=== PATIENT | female | born 1965 | race Caucasian/White ===

== ENCOUNTER 2016-08-14 13:46 | Inpatient (IN) | payer MEDICARE, MEDICAID ==
[2016-08-14] MEDS ORDERED: clonazePAM TAB(*) 0.5 MG PO ONE (14:58)
[2016-08-14 15:01] LABS: Urine Bilirubin Negative (Negative); Urine Glucose Negative (Negative); Urine Nitrite Negative (Negative)
[2016-08-14 15:14] LABS: Benzodiazepine Urine Screen None Detected (None Detect)
[2016-08-14 15:24] LABS: Hematocrit 38 % (35-47); Hemoglobin 13.1 g/dl (12.0-16.0); Mean Corpuscular HGB Conc 35 g/dl (31-36); Mean Corpuscular Hemoglobin 32 pg (27-31); Mean Corpuscular Volume 93 fL (80-97); Mean Platelet Volume 11 um3 (7.4-10.4); Red Blood Count 4.05 10^6/ul (4.0-5.4); Red Cell Distribution Width 13 % (10.5-15); White Blood Count 5.9 10^3/ul (3.5-10.8)
[2016-08-14 15:31] LABS: Comments Flag Yes
[2016-08-14 15:32] LABS: Add Diff/Slide Review? Slide Review Added
[2016-08-14 15:42] LABS: ALT 18 U/L (7-52); AST 21 U/L (13-39); Alkaline Phosphatase 55 U/L (34-104); Anion Gap 7 mmol/L (2-11); BUN/Creatinine Ratio 10.8 (8-20); Blood Urea Nitrogen 12 mg/dL (6-24); CO2 Carbon Dioxide 29 mmol/L (22-32); Calcium 9.4 mg/dL (8.6-10.3); Chloride 97 mmol/L (101-111); EGFR African American 66.4 (>60); EGFR Non-African American 51.6 (>60); Globulin 2.7 g/dL (2-4); Glucose 96 mg/dL (70-100); Sodium 133 mmol/L (133-145); Total Protein 6.7 g/dL (6.4-8.9)
[2016-08-14 16:05] LABS: Acetaminophen < 15 mcg/mL; Alcohol < 10 mg/dL (<10); Salicylate < 2.50 mg/dL (<30)
[2016-08-14 16:14] LABS: TSH (Thyroid Stimulating Horm) 0.69 mcIU/mL (0.34-5.60)
[2016-08-14] MEDS ORDERED: Al Hydrox/Mg Hydrox/Simet LIQ* 30 ML UDC PO PRN (22:17)
[2016-08-14] MEDS ORDERED: clonazePAM TAB(*) 1 MG ONE (23:35)
[2016-08-14] MEDS ORDERED: Pregabalin CAP(*) 100 MG ONE (23:36)
--- NOTE | 2016-08-15 07:08 | ED ---
Kacy Clarke Matthew, scribed for Jose Arroyo MD on 08/14/16 at 1416 . Altered Mental Status - HPI Summary HPI Summary: A 50 y/o female presents to the ED with altered mental status. The patient states that she has suicidal ideation that's worse than baseline and has a plan to cut her wrist with razor blades. Associated symptoms include depression and anxiety. She had a recent change in her medication last week. - History Of Current Complaint Chief Complaint: EDMentalHealth Stated Complaint: SI Time Seen by Provider: 08/14/16 14:04 Hx Obtained From: Patient Hx From Patient Unobtainable Due To: Altered Mental Status Onset/Duration: Still Present Timing: Constant Severity Initially: Moderate Severity Currently: Moderate Aggravating Factor(s): Medication Change Has Suicidal: Thoughts, With A Plan - Allergies/Home Medications Allergies/Adverse Reactions: Allergies Allergy/AdvReac Type Severity Reaction Status Date / Time No Known Allergies Allergy Verified 08/14/16 13:54 PMH/Surg Hx/FS Hx/Imm Hx Endocrine/Hematology History: Reports: Hx Thyroid Disease - hypothyroid Denies: Hx Diabetes Cardiovascular History: Denies: Hx Hypertension, Hx Pacemaker/ICD Respiratory History: Reports: Hx Pulmonary Embolism - 2002 Denies: Hx Asthma GI History: Reports: Hx Jaundice - 09/2013 R/T GALLBLADDER, NONE NOW, Hx Ileostomy Musculoskeletal History: Reports: Hx Fibromyalgia Denies: Hx Osteoporosis Sensory History: Denies: Hx Hearing Aid Neurological History: Reports: Hx Migraine - Hx OF , EVERY FEW MONTHS, Other Neuro Impairments/Disorders - FIBROMYALGIA Psychiatric History: Reports: Hx Anxiety, Hx Panic Disorder, Hx Post Traumatic Stress Disorder - Cancer History Hx Chemotherapy: No Hx Radiation Therapy: No - Surgical History Surgery Procedure, Year, and Place: 2002 PROLASPE RECTAL WITH REPAIR [facility]. 2002 ILEOSTOMY & REVERSAL [facility]. 2002 TRACHEOSTOMY [facility]. 2003 ABDOMINAL HERNIA REPAIRS X 2 [facility]. 10/22/2013 [facility] Hx Anesthesia Reactions: Yes - PANIC ATTACKS, Infectious Disease History: No Infectious Disease History: Denies: Traveled Outside the [place] in Last 30 Days - Family History Family History: FHx of breast CA - Social History Alcohol Use: None Substance Use Type: Reports: None Type: Cigarettes Amount Used/How Often: 3-4 PPD 16 YRS Length of Time of Smoking/Using Tobacco: 16 YRS Have You Smoked in the Last Year: No Review of Systems Constitutional: Negative Eyes: Negative ENT: Negative Cardiovascular: Negative Respiratory: Negative Gastrointestinal: Negative Genitourinary: Negative Musculoskeletal: Negative Skin: Negative Neurological: Negative Psychological: Other - SI Positive: Anxious, Depressed All Other Systems Reviewed And Are Negative: Yes Physical Exam Triage Information Reviewed: Yes Vital Signs On Initial Exam: Initial Vitals Temp Pulse Resp BP Pulse Ox 97.9 F 101 20 112/69 100 08/14/16 13:46 08/14/16 13:46 08/14/16 13:46 08/14/16 13:46 08/14/16 13:46 Vital Signs Reviewed: Yes Appearance: Positive: No Pain Distress, Well-Nourished Skin: Positive: Warm, Skin Color Reflects Adequate Perfusion, Dry Head/Face: Positive: Normal Head/Face Inspection Eyes: Positive: Normal ENT: Positive: Normal ENT inspection Neck: Positive: Supple, Nontender Respiratory/Lung Sounds: Positive: Clear to Auscultation, Breath Sounds Present Cardiovascular: Positive: RRR Abdomen Description: Positive: Nontender, Soft Bowel Sounds: Positive: Present Musculoskeletal: Positive: Normal, Strength/ROM Intact Neurological: Positive: Normal, Alert, Oriented to Person Place, Time Psychiatric: Positive: Anxious Diagnostics - Vital Signs Vital Signs Temp Pulse Resp BP Pulse Ox 08/14/16 13:46 97.9 F 101 20 112/69 100 - Laboratory Lab Results: Lab Results 08/14/16 08/14/16 08/14/16 Range/Units 14:45 14:45 15:15 WBC 5.9 (3.5-10.8) 10^3/ul RBC 4.05 (4.0-5.4) 10^6/ul Hgb 13.1 (12.0-16.0) g/dl Hct 38 (35-47) % MCV 93 (80-97) fL MCH 32 H (27-31) pg MCHC 35 (31-36) g/dl RDW 13 (10.5-15) % Plt Count 165 (150-450) 10^3/ul MPV 11 H (7.4-10.4) um3 Neut % (Auto) 70.2 (38-83) % Lymph % (Auto) 22.0 L (25-47) % Nobles % (Auto) 7.2 (1-9) % Eos % (Auto) 0.1 (0-6) % Baso % (Auto) 0.5 (0-2) % Absolute Neuts (auto) 4.1 (1.5-7.7) 10^3/ul Absolute Lymphs (auto) 1.3 (1.0-4.8) 10^3/ul Absolute Monos (auto) 0.4 (0-0.8) 10^3/ul Absolute Eos (auto) 0 (0-0.6) 10^3/ul Absolute Basos (auto) 0 (0-0.2) 10^3/ul Absolute Nucleated RBC 0.01 10^3/ul Nucleated RBC % 0.1 Sodium (133-145) mmol/L Potassium (3.5-5.0) mmol/L Chloride (101-111) mmol/L Carbon Dioxide (22-32) mmol/L Anion Gap (2-11) mmol/L BUN (6-24) mg/dL Creatinine (0.51-0.95) mg/dL Est GFR ( Amer) (>60) Est GFR (Non-Af Amer) (>60) BUN/Creatinine Ratio (8-20) Glucose (70-100) mg/dL Calcium (8.6-10.3) mg/dL Total Bilirubin (0.2-1.0) mg/dL AST (13-39) U/L ALT (7-52) U/L Alkaline Phosphatase (34-104) U/L Total Protein (6.4-8.9) g/dL Albumin (3.2-5.2) g/dL Globulin (2-4) g/dL Albumin/Globulin Ratio (1-3) TSH (0.34-5.60) mcIU/mL Urine Color Yellow Urine Appearance Clear Urine pH 9.0 (5-9) Ur Specific [place] 1.010 (1.010-1.030) Urine Protein Negative (Negative) Urine Ketones Negative (Negative) Urine Blood Negative (Negative) Urine Nitrate Negative (Negative) Urine Bilirubin Negative (Negative) Urine Urobilinogen Negative (Negative) Ur Leukocyte Esterase Negative (Negative) Urine Glucose Negative (Negative) Urine Ascorbic Acid * H (Negative) Salicylates (<30) mg/dL Urine Opiates Screen None detected (None Detect) Acetaminophen mcg/mL Ur Barbiturates Screen None detected (None Detect) Ur Phencyclidine Scrn None detected (None Detect) Ur Amphetamines Screen None detected (None Detect) U Benzodiazepines Scrn None detected (None Detect) Urine Cocaine Screen None detected (None Detect) U Cannabinoids Screen None detected (None Detect) Serum Alcohol (<10) mg/dL 08/14/16 Range/Units 15:15 WBC (3.5-10.8) 10^3/ul RBC (4.0-5.4) 10^6/ul Hgb (12.0-16.0) g/dl Hct (35-47) % MCV (80-97) fL MCH (27-31) pg MCHC (31-36) g/dl RDW (10.5-15) % Plt Count (150-450) 10^3/ul MPV (7.4-10.4) um3 Neut % (Auto) (38-83) % Lymph % (Auto) (25-47) % Nobles % (Auto) (1-9) % Eos % (Auto) (0-6) % Baso % (Auto) (0-2) % Absolute Neuts (auto) (1.5-7.7) 10^3/ul Absolute Lymphs (auto) (1.0-4.8) 10^3/ul Absolute Monos (auto) (0-0.8) 10^3/ul Absolute Eos (auto) (0-0.6) 10^3/ul Absolute Basos (auto) (0-0.2) 10^3/ul Absolute Nucleated RBC 10^3/ul Nucleated RBC % Sodium 133 (133-145) mmol/L Potassium 4.0 (3.5-5.0) mmol/L Chloride 97 L (101-111) mmol/L Carbon Dioxide 29 (22-32) mmol/L Anion Gap 7 (2-11) mmol/L BUN 12 (6-24) mg/dL Creatinine 1.11 H (0.51-0.95) mg/dL Est GFR ( Amer) 66.4 (>60) Est GFR (Non-Af Amer) 51.6 (>60) BUN/Creatinine Ratio 10.8 (8-20) Glucose 96 (70-100) mg/dL Calcium 9.4 (8.6-10.3) mg/dL Total Bilirubin 0.50 (0.2-1.0) mg/dL AST 21 (13-39) U/L ALT 18 (7-52) U/L Alkaline Phosphatase 55 (34-104) U/L Total Protein 6.7 (6.4-8.9) g/dL Albumin 4.0 (3.2-5.2) g/dL Globulin 2.7 (2-4) g/dL Albumin/Globulin Ratio 1.5 (1-3) TSH 0.69 (0.34-5.60) mcIU/mL Urine Color Urine Appearance Urine pH (5-9) Ur Specific [place] (1.010-1.030) Urine Protein (Negative) Urine Ketones (Negative) Urine Blood (Negative) Urine Nitrate (Negative) Urine Bilirubin (Negative) Urine Urobilinogen (Negative) Ur Leukocyte Esterase (Negative) Urine Glucose (Negative) Urine Ascorbic Acid (Negative) Salicylates < 2.50 (<30) mg/dL Urine Opiates Screen (None Detect) Acetaminophen < 15 mcg/mL Ur Barbiturates Screen (None Detect) Ur Phencyclidine Scrn (None Detect) Ur Amphetamines Screen (None Detect) U Benzodiazepines Scrn (None Detect) Urine Cocaine Screen (None Detect) U Cannabinoids Screen (None Detect) Serum Alcohol < 10 (<10) mg/dL Result Diagrams: 08/14/16 15:15 08/14/16 15:15 Lab Statement: Any lab studies that have been ordered have been reviewed, and results considered in the medical decision making process. Altered Mental Statu Course/Dx - Course Course Of Treatment: Ms. Alarcon has been medically cleared at change of shift and is awaiting MHE. - Diagnoses Discharge Diagnoses: DEPRESSION, Suicidal ideation Discharge - Discharge Plan Condition: Stable Disposition: ADMITTED TO [facility] documentation as recorded by the Kacy levi Matthew accurately reflects the service I personally performed and the decisions made by me, Jose Arroyo MD.
[2016-08-15] MEDS: Levothyroxine TAB* 88 MCG TAB PO SCH (07:39)
[2016-08-15] MEDS: Methylphenidate TAB* 10 MG PO SCH ×3 (08:24→14:46)
[2016-08-15] MEDS: Pregabalin CAP(*) 50 MG PO SCH (08:25)
[2016-08-15] MEDS: Pregabalin CAP(*) 100 MG PO SCH ×2 (08:25→21:26)
[2016-08-15] MEDS: Vitamin THERAPEUTIC TAB PO SCH (08:26)
[2016-08-15] MEDS: CMC:Lurasidone (NF) 40 MG TAB PO SCH (08:26)
[2016-08-15] MEDS: CMC:Cyclosporine 0.05% OPHTH (NF) 0.4 ML VIAL BOTH EYES SCH ×2 (08:27→21:25)
[2016-08-15] MEDS ORDERED: clonazePAM TAB(*) 0.5 MG PO SCH (09:00)
--- NOTE | 2016-08-15 11:56 | PN ---
MHU: Group Therapy Note - Service Type Service Type: [id number] Group Psychotherapy - Cognitive Behavioral Group Therapy ( CBT):Patient was attentive and participatory in CBT programming this morning, and remained in good behavioral control. Patient expressed positive insights regarding relevant treatment interventions and goals.
[2016-08-15] MEDS: CMC:ClomiPRAMINE (NF) 25 MG CAP PO SCH ×2 (14:45→21:26)
[2016-08-15] MEDS: Cyanocobalamin TAB* 500 MCG PO SCH (16:12)
[2016-08-15] MEDS ORDERED: clonazePAM TAB(*) 1 MG PO SCH (21:00)
[2016-08-15] MEDS ORDERED: Pregabalin CAP(*) 300 MG PO SCH (21:00)
[2016-08-15] MEDS: clonazePAM TAB(*) 0.5 MG PO SCH (21:27)
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
[2016-08-15] MEDS: Progesterone CAP (NF) 100 MG CAP PO SCH (22:57)
[2016-08-16] MEDS: Levothyroxine TAB* 88 MCG TAB PO SCH (06:35)
[2016-08-16] MEDS: CMC:Lurasidone (NF) 40 MG TAB PO SCH (08:24)
[2016-08-16] MEDS: Methylphenidate TAB* 10 MG PO SCH ×3 (08:25→15:41)
[2016-08-16] MEDS: CMC:Cyclosporine 0.05% OPHTH (NF) 0.4 ML VIAL BOTH EYES SCH ×2 (08:25→20:18)
[2016-08-16] MEDS: Vitamin THERAPEUTIC TAB PO SCH (08:26)
[2016-08-16] MEDS: Pregabalin CAP(*) 100 MG PO SCH ×2 (08:26→20:19)
[2016-08-16] MEDS: clonazePAM TAB(*) 1 MG PO SCH (08:26)
[2016-08-16] MEDS: Cyanocobalamin TAB* 500 MCG PO SCH (08:27)
[2016-08-16] MEDS: Pregabalin CAP(*) 50 MG PO SCH (08:27)
[2016-08-16] MEDS ORDERED: [UNRECOGNIZED DRUG - OTHER] PO SCH (09:00)
--- NOTE | 2016-08-16 14:51 | PN ---
Subjective - Subjective Service Type: 18860 Hosp care 15 min low complexity Subjective: The patient is seen by myself, accompanied by female staff, RADHA Hayden, per patient's preference. She remains anxious and upset with thoughts of cutting herself. Her mother and brother visited today but she did not perceive her family as supportive. She is also upset that she now has a roommate and doesn' t feel as comfortable when retreating to her room. The patient cannot contract for safety today. Objective - Appearance Appearance: Thin Framed Dysmorphic Features: No Hygiene: Normal Grooming: Fairly Well Kept - Behavior Psychomotor Activities: Normal Exhibits Abnormal Movement: No - Attitude and Relatedness Attitude and Relatedness: Cooperative Eye Contact: Fair - Speech Quality: Unpressured Latencies: Normal Quantity: Appropriate - Mood Patient's Decription of Mood: "Anxious" - Affect Observed Affect: Constricted Affect Consistent with: Dysphoria - Thought Process Patient's Thought Process: Coherent Thought Content: Yes Suicidal Planning, No Passive Wish, No Homicidal Ideation, No Paranoid Ideation - Sensorium Experiencing Hallucinations: No, Sensorium is Clear Type of Hallucinations: Visual: No, Auditory: No, Command: No - Level of Consciousness Level of Consciousness: Alert Orientation: Yes Intact, Yes Orientated to Time, Yes Orientated to Place, Yes Orientated to Person - Impulse Control Impulse Control: Tenuous - Insight and Judgement Insight and Judgement: Fair - Group Participation Particating in Group Activities: Yes - Medication Management Medication Management Adherence: Yes Assessment - Assessment Merits Inpatient Hospitalization: For Immediate Safety, For Stabilization Inpatient DSM-IV Dx: PTSD Clinical Impression: 50 y.o. single, white female with past diagnoses of PTSD and anorexia nervosa who presented to the ER, having been sent in by her outpatient therapist due to SI with a plan to cut herself. Plan - Plan Treatment Plan: Name: KELSEY ESTEBAN Birthdate: 1965 [id number] The patient has been placed back on all outpatient medications and her clonazepam, which has been undergoing taper by her outpatient psychiatrist, was gently increased back to 1mg PO qam and 1.25mg PO qhs. She is still symptomatic and with SI. Needs further stabilization. Continued Medication Management: Continue Outpt Medication Medications: Current Medications Acetaminophen (Tylenol Tab*) 650 mg PO Q4H PRN PRN Reason: PAIN or TEMP > 101 F Al Hydrox/Mg Hydrox/Simethicone (Maalox Plus*) 30 ml PO Q4H PRN PRN Reason: INDIGESTION Clomipramine HCl (Clomipramine (Nf)) 75 mg PO 1500 [facility] Last Admin: 08/15/16 14:45 Dose: 75 mg Clomipramine HCl (Clomipramine (Nf)) 150 mg PO BEDTIME [facility] Last Admin: 08/15/16 21:26 Dose: 150 mg Clonazepam (Klonopin Tab(*)) 1 mg PO DAILY [facility] Last Admin: 08/16/16 08:26 Dose: 1 mg Clonazepam (Klonopin Tab(*)) 1.25 mg PO BEDTIME [facility] Last Admin: 08/15/16 21:27 Dose: 1.25 mg Cyanocobalamin (Vitamin B12 Tab*) 1,000 mcg PO DAILY [facility] Last Admin: 08/16/16 08:27 Dose: 1,000 mcg Cyclosporine (Restasis 0.05% Oph) 1 drop BOTH EYES BID [facility] Last Admin: 08/16/16 08:25 Dose: 1 drop Estradiol (Climara Patch 0.05 Mg/Day*) 1 patch TRANSDERM Mo@0900 [facility] Levothyroxine Sodium (Synthroid Tab*) 88 mcg PO DAILY@0600 [facility] Last Admin: 08/16/16 06:35 Dose: 88 mcg Lurasidone HCl (Latuda (Nf)) 120 mg PO DAILY WITH MEAL [facility] Last Admin: 08/16/16 08:24 Dose: 120 mg Methylphenidate HCl (Ritalin Tab*) 40 mg PO QAM [facility] Last Admin: 08/16/16 08:25 Dose: 40 mg Methylphenidate HCl (Ritalin Tab*) 20 mg PO 1200 [facility] Last Admin: 08/16/16 11:44 Dose: 20 mg Methylphenidate HCl (Ritalin Tab*) 20 mg PO 1500 [facility] Last Admin: 08/15/16 14:46 Dose: 20 mg Multivitamins (Theragran Tab*) 1 tab PO DAILY [facility] Last Admin: 08/16/16 08:26 Dose: 1 tab Polyethylene Glycol/Electrolytes (Miralax*) 17 gm PO 0800,2100 [facility] Pregabalin (Lyrica Cap(*)) 100 mg PO QAM [facility] Last Admin: 08/16/16 08:26 Dose: 100 mg Pregabalin (Lyrica Cap(*)) 50 mg PO QAM [facility] Last Admin: 08/16/16 08:27 Dose: 50 mg Pregabalin (Lyrica Cap(*)) 300 mg PO BEDTIME [facility] Last Admin: 08/15/16 21:26 Dose: 300 mg Progesterone (Prometrium (Nf)) 200 mg PO BEDTIME [facility] Last Admin: 08/15/16 22:57 Dose: Not Given - Discharge Plan Discharge Plan: Inpatient Hospitalization
[2016-08-16] MEDS: CMC:ClomiPRAMINE (NF) 25 MG CAP PO SCH ×2 (15:41→20:21)
[2016-08-16] MEDS: clonazePAM TAB(*) 0.5 MG PO SCH (20:21)
[2016-08-16] MEDS: Polyethylene Glycol 3350* 17 GM PACKET PO SCH (20:23)
[2016-08-16] MEDS: Progesterone CAP (NF) 100 MG CAP PO SCH (22:26)
[2016-08-17] MEDS: Levothyroxine TAB* 88 MCG TAB PO SCH (05:58)
[2016-08-17 07:34] LABS: Cholesterol 137 mg/dL; HDL Cholesterol 41.3 mg/dL; LDL Cholesterol 82 mg/dL; Triglycerides 69 mg/dL
[2016-08-17 08:09] LABS: Vitamin B12 > 1450 pg/mL (180-914)
[2016-08-17] MEDS: CMC:Lurasidone (NF) 40 MG TAB PO SCH (08:12)
[2016-08-17] MEDS: Polyethylene Glycol 3350* 17 GM PACKET PO SCH ×2 (08:12→20:39)
[2016-08-17] MEDS: Pregabalin CAP(*) 50 MG PO SCH (08:13)
[2016-08-17] MEDS: CMC:Cyclosporine 0.05% OPHTH (NF) 0.4 ML VIAL BOTH EYES SCH ×2 (08:13→20:39)
[2016-08-17] MEDS: Cyanocobalamin TAB* 500 MCG PO SCH (08:14)
[2016-08-17] MEDS: clonazePAM TAB(*) 1 MG PO SCH (08:14)
[2016-08-17] MEDS: Methylphenidate TAB* 10 MG PO SCH ×3 (08:14→15:25)
[2016-08-17] MEDS: Vitamin THERAPEUTIC TAB PO SCH (08:14)
[2016-08-17] MEDS: Pregabalin CAP(*) 100 MG PO SCH ×2 (08:14→20:36)
[2016-08-17] MEDS: CMC:ClomiPRAMINE (NF) 25 MG CAP PO SCH ×2 (15:25→20:35)
[2016-08-17] MEDS: clonazePAM TAB(*) 0.5 MG PO SCH (20:37)
[2016-08-17] MEDS: PROGESTERONE 200 MG PO SCH (20:39)
[2016-08-18] MEDS: Levothyroxine TAB* 88 MCG TAB PO SCH (06:14)
[2016-08-18] MEDS: CMC:Cyclosporine 0.05% OPHTH (NF) 0.4 ML VIAL BOTH EYES SCH ×2 (08:34→20:29)
[2016-08-18] MEDS: CMC:Lurasidone (NF) 40 MG TAB PO SCH (08:34)
[2016-08-18] MEDS: Pregabalin CAP(*) 50 MG PO SCH (08:35)
[2016-08-18] MEDS: Cyanocobalamin TAB* 500 MCG PO SCH (08:35)
[2016-08-18] MEDS: Pregabalin CAP(*) 100 MG PO SCH ×2 (08:35→20:30)
[2016-08-18] MEDS: clonazePAM TAB(*) 1 MG PO SCH (08:36)
[2016-08-18] MEDS: Vitamin THERAPEUTIC TAB PO SCH (08:36)
[2016-08-18] MEDS: Polyethylene Glycol 3350* 17 GM PACKET PO SCH ×2 (08:39→20:32)
[2016-08-18] MEDS ORDERED: Estradiol PATCH 0.05MG/DAY* 1 PATCH TRANSDERM SCH (09:00)
[2016-08-18] MEDS: Methylphenidate TAB* 10 MG PO SCH ×3 (09:42→17:22)
--- NOTE | 2016-08-18 13:22 | PN ---
Subjective - Subjective Service Type: [id number] Hosp care 15 min low complexity Subjective: I met with Lizzette on the unit in the presence of female techRich, for the patient's comfort. Lizzette reports that she continues to experience SI and feels like much of this is attributable to being around male peers on the unit. "I feel like I'm damned if I'm here and damned if I leave. There's so many men here, but if I go home I know I'll just be sitting alone in my apartment and that's going to trigger me also." She reports that she has been instructed by her outpatient therapist to develop a basic friendship with a male and actually tried this yesterday in the day area of the unit by striking up a conversation with a male peer. "Things were going fine but then he asks me out for coffee and for my phone number." She felt very threatened by this and experienced a resumption of SI with thoughts to cut herself. This clinician left a voicemail message with Dr. Danielle Clarke, her outpatient psychiatrist. Objective - Appearance Appearance: Well Developed/Nourished Dysmorphic Features: No Hygiene: Normal Grooming: Well Kept - Behavior Psychomotor Activities: Normal Exhibits Abnormal Movement: No - Attitude and Relatedness Attitude and Relatedness: Cooperative Eye Contact: Fair - Speech Quality: Unpressured Latencies: Normal Quantity: Appropriate - Mood Patient's Decription of Mood: "Anxious" - Affect Observed Affect: Constricted Affect Consistent with: Dysphoria - Thought Process Patient's Thought Process: Coherent Thought Content: Yes Suicidal Planning, No Passive Wish, No Homicidal Ideation, No Paranoid Ideation - Sensorium Experiencing Hallucinations: No, Sensorium is Clear Type of Hallucinations: Visual: No, Auditory: No, Command: No - Level of Consciousness Level of Consciousness: Alert Orientation: Yes Intact, Yes Orientated to Time, Yes Orientated to Place, Yes Orientated to Person - Impulse Control Impulse Control: Poor - Insight and Judgement Insight and Judgement: Impaired - Group Participation Particating in Group Activities: Yes - Medication Management Medication Management Adherence: Yes Assessment - Assessment Merits Inpatient Hospitalization: For Immediate Safety, For Stabilization Inpatient DSM-IV Dx: PTSD Clinical Impression: 50 y.o. single, white female with past diagnoses of PTSD and anorexia nervosa who presented to the ER, having been sent in by her outpatient therapist due to SI with a plan to cut herself. Plan - Plan Treatment Plan: Name: LIZZETTE ESTEBAN Birthdate: 1965 [id number] The patient has been placed back on all outpatient medications and her clonazepam, which has been undergoing taper by her outpatient psychiatrist, was gently increased back to 1mg PO qam and 1.25mg PO qhs. She is still symptomatic and with SI. There is no way to completely eliminate her exposure to males on our unit but she is advised to limit this if it is triggering her. I will continue to see her accompanied by female staff for her comfort. Await collateral contact with Dr. Clarke. Needs further stabilization. Continued Medication Management: Continue Outpt Medication Medications: Current Medications Acetaminophen (Tylenol Tab*) 650 mg PO Q4H PRN PRN Reason: PAIN or TEMP > 101 F Al Hydrox/Mg Hydrox/Simethicone (Maalox Plus*) 30 ml PO Q4H PRN PRN Reason: INDIGESTION Clomipramine HCl (Clomipramine (Nf)) 75 mg PO 1500 [facility] Last Admin: 08/17/16 15:25 Dose: 75 mg Clomipramine HCl (Clomipramine (Nf)) 150 mg PO BEDTIME [facility] Last Admin: 08/17/16 20:35 Dose: 150 mg Clonazepam (Klonopin Tab(*)) 1 mg PO DAILY [facility] Last Admin: 08/18/16 08:36 Dose: 1 mg Clonazepam (Klonopin Tab(*)) 1.25 mg PO BEDTIME [facility] Last Admin: 08/17/16 20:37 Dose: 1.25 mg Cyanocobalamin (Vitamin B12 Tab*) 1,000 mcg PO DAILY [facility] Last Admin: 08/18/16 08:35 Dose: 1,000 mcg Cyclosporine (Restasis 0.05% Oph) 1 drop BOTH EYES BID [facility] Last Admin: 08/18/16 08:34 Dose: 1 drop Estradiol (Climara Patch 0.05 Mg/Day*) 1 patch TRANSDERM Mo@0900 [facility] Last Admin: 08/18/16 08:37 Dose: 1 patch Levothyroxine Sodium (Synthroid Tab*) 88 mcg PO DAILY@0600 [facility] Last Admin: 08/18/16 06:14 Dose: 88 mcg Lurasidone HCl (Latuda (Nf)) 120 mg PO DAILY WITH MEAL [facility] Last Admin: 08/18/16 08:34 Dose: 120 mg Methylphenidate HCl (Ritalin Tab*) 40 mg PO QAM [facility] Last Admin: 08/18/16 09:42 Dose: 40 mg Methylphenidate HCl (Ritalin Tab*) 20 mg PO 1200 [facility] Last Admin: 08/18/16 12:03 Dose: 20 mg Methylphenidate HCl (Ritalin Tab*) 20 mg PO 1500 [facility] Last Admin: 08/17/16 15:25 Dose: 20 mg Multivitamins (Theragran Tab*) 1 tab PO DAILY [facility] Last Admin: 08/18/16 08:36 Dose: 1 tab Pto: Progesterone (200 Mg Caps) 1 dose PO BEDTIME [facility] Last Admin: 08/17/16 20:39 Dose: 1 dose Polyethylene Glycol/Electrolytes (Miralax*) 17 gm PO 0800,2100 [facility] Last Admin: 08/18/16 08:39 Dose: 17 gm Pregabalin (Lyrica Cap(*)) 100 mg PO QAM [facility] Last Admin: 08/18/16 08:35 Dose: 100 mg Pregabalin (Lyrica Cap(*)) 50 mg PO QAM [facility] Last Admin: 08/18/16 08:35 Dose: 50 mg Pregabalin (Lyrica Cap(*)) 300 mg PO BEDTIME [facility] Last Admin: 08/17/16 20:36 Dose: 300 mg - Discharge Plan Discharge Plan: Inpatient Hospitalization
--- NOTE | 2016-08-18 14:49 | PN ---
MHU: Group Therapy Note - Service Type Service Type: [id number] Group Psychotherapy - Cognitive Behavioral Group Therapy ( CBT):Patient was attentive and participatory in CBT programming this morning, and remained in good behavioral control. Patient expressed positive insights regarding relevant treatment interventions and goals.
[2016-08-18] MEDS: CMC:ClomiPRAMINE (NF) 25 MG CAP PO SCH ×2 (17:21→20:31)
[2016-08-18] MEDS: clonazePAM TAB(*) 0.5 MG PO SCH (20:28)
[2016-08-18] MEDS: PROGESTERONE 200 MG PO SCH (20:32)
[2016-08-19] MEDS: Levothyroxine TAB* 88 MCG TAB PO SCH (06:28)
[2016-08-19] MEDS: Vitamin THERAPEUTIC TAB PO SCH (08:21)
[2016-08-19] MEDS: Pregabalin CAP(*) 50 MG PO SCH (08:21)
[2016-08-19] MEDS: Cyanocobalamin TAB* 500 MCG PO SCH (08:22)
[2016-08-19] MEDS: CMC:Cyclosporine 0.05% OPHTH (NF) 0.4 ML VIAL BOTH EYES SCH ×2 (08:22→20:15)
[2016-08-19] MEDS: Pregabalin CAP(*) 100 MG PO SCH ×2 (08:22→20:18)
[2016-08-19] MEDS: clonazePAM TAB(*) 1 MG PO SCH (08:22)
[2016-08-19] MEDS: Methylphenidate TAB* 10 MG PO SCH ×3 (08:23→15:18)
[2016-08-19] MEDS: CMC:Lurasidone (NF) 40 MG TAB PO SCH (08:24)
[2016-08-19] MEDS: Polyethylene Glycol 3350* 17 GM PACKET PO SCH ×2 (08:28→20:16)
--- NOTE | 2016-08-19 11:26 | PN ---
Subjective - Subjective Service Type: 70548 Hosp care 15 min low complexity Subjective: The patient is seen in the presence of Transcription Typist, Shannen Alvarez, for routine follow up. She reports that her SI is markedly reduced since admission and that she feels she would be safe returning to her home tomorrow, as she has quick follow up appointments with both her therapist and psychiatrist in place for this August 21. She continues to have passive SI but states this is her baseline. "I've always had suicidal thoughts. That's not going to change probably." She does deny plan or intent. Two phone calls to psychiatrist Danielle Clarke have gone unanswered. Objective - Appearance Appearance: Well Developed/Nourished Dysmorphic Features: No Hygiene: Normal Grooming: Well Kept - Behavior Psychomotor Activities: Normal Exhibits Abnormal Movement: No - Attitude and Relatedness Attitude and Relatedness: Cooperative Eye Contact: Good - Speech Quality: Unpressured Latencies: Normal Quantity: Appropriate - Mood Patient's Decription of Mood: "Okay" - Affect Observed Affect: Fair Affect Consistent with: Euthymia - Thought Process Patient's Thought Process: Coherent Thought Content: Yes Passive Wish, No Suicidal Planning, No Homicidal Ideation, No Paranoid Ideation - Sensorium Experiencing Hallucinations: No, Sensorium is Clear Type of Hallucinations: Visual: No, Auditory: No, Command: No - Level of Consciousness Level of Consciousness: Alert Orientation: Yes Intact, Yes Orientated to Time, Yes Orientated to Place, Yes Orientated to Person - Impulse Control Impulse Control: Tenuous - Insight and Judgement Insight and Judgement: Fair - Group Participation Particating in Group Activities: Yes - Medication Management Medication Management Adherence: Yes Assessment - Assessment Merits Inpatient Hospitalization: Consolidate Improvements, Pending Safe DC Plan Inpatient DSM-IV Dx: PTSD Clinical Impression: 50 y.o. single, white female with past diagnoses of PTSD and anorexia nervosa who presented to the ER, having been sent in by her outpatient therapist due to SI with a plan to cut herself. Plan - Plan Treatment Plan: Name: KELSEY ESTEBAN Birthdate: 1965 [id number] The patient has been placed back on all outpatient medications and her clonazepam, which has been undergoing taper by her outpatient psychiatrist, was gently increased back to 1mg PO qam and 1.25mg PO qhs. She is still endorsing passive SI, which she claims is her baseline. I will continue to see her accompanied by female staff for her comfort. Await collateral contact with Dr. Clarke. Possible d/c tomorrow (08/20). Continued Medication Management: Continue Outpt Medication Medications: Current Medications Acetaminophen (Tylenol Tab*) 650 mg PO Q4H PRN PRN Reason: PAIN or TEMP > 101 F Al Hydrox/Mg Hydrox/Simethicone (Maalox Plus*) 30 ml PO Q4H PRN PRN Reason: INDIGESTION Clomipramine HCl (Clomipramine (Nf)) 75 mg PO 1500 [facility] Last Admin: 08/18/16 17:21 Dose: 75 mg Clomipramine HCl (Clomipramine (Nf)) 150 mg PO BEDTIME [facility] Last Admin: 08/18/16 20:31 Dose: 150 mg Clonazepam (Klonopin Tab(*)) 1 mg PO DAILY [facility] Last Admin: 08/19/16 08:22 Dose: 1 mg Clonazepam (Klonopin Tab(*)) 1.25 mg PO BEDTIME [facility] Last Admin: 08/18/16 20:28 Dose: 1.25 mg Cyanocobalamin (Vitamin B12 Tab*) 1,000 mcg PO DAILY [facility] Last Admin: 08/19/16 08:22 Dose: 1,000 mcg Cyclosporine (Restasis 0.05% Oph) 1 drop BOTH EYES BID [facility] Last Admin: 08/19/16 08:22 Dose: 1 drop Estradiol (Climara Patch 0.05 Mg/Day*) 1 patch TRANSDERM Mo@0900 [facility] Last Admin: 08/18/16 08:37 Dose: 1 patch Levothyroxine Sodium (Synthroid Tab*) 88 mcg PO DAILY@0600 [facility] Last Admin: 08/19/16 06:28 Dose: 88 mcg Lurasidone HCl (Latuda (Nf)) 120 mg PO DAILY WITH MEAL [facility] Last Admin: 08/19/16 08:24 Dose: 120 mg Methylphenidate HCl (Ritalin Tab*) 40 mg PO QAM [facility] Last Admin: 08/19/16 08:23 Dose: 40 mg Methylphenidate HCl (Ritalin Tab*) 20 mg PO 1200 [facility] Last Admin: 08/18/16 12:03 Dose: 20 mg Methylphenidate HCl (Ritalin Tab*) 20 mg PO 1500 [facility] Last Admin: 08/18/16 17:22 Dose: Not Given Multivitamins (Theragran Tab*) 1 tab PO DAILY [facility] Last Admin: 08/19/16 08:21 Dose: 1 tab Pto: Progesterone (200 Mg Caps) 1 dose PO BEDTIME [facility] Last Admin: 08/18/16 20:32 Dose: 1 dose Polyethylene Glycol/Electrolytes (Miralax*) 17 gm PO 0800,2100 [facility] Last Admin: 08/19/16 08:28 Dose: 17 gm Pregabalin (Lyrica Cap(*)) 100 mg PO QAM [facility] Last Admin: 08/19/16 08:22 Dose: 100 mg Pregabalin (Lyrica Cap(*)) 50 mg PO QAM [facility] Last Admin: 08/19/16 08:21 Dose: 50 mg Pregabalin (Lyrica Cap(*)) 300 mg PO BEDTIME [facility] Last Admin: 08/18/16 20:30 Dose: 300 mg - Discharge Plan Discharge Plan: Inpatient Hospitalization
--- NOTE | 2016-08-19 14:37 | PN ---
MHU: Group Therapy Note - Service Type Service Type: [id number] Group Psychotherapy - Cognitive Behavioral Group Therapy ( CBT):Patient was attentive and participatory in CBT programming this morning, and remained in good behavioral control. Patient expressed positive insights regarding relevant treatment interventions and goals.
[2016-08-19] MEDS: CMC:ClomiPRAMINE (NF) 25 MG CAP PO SCH ×2 (15:19→20:17)
[2016-08-19] MEDS: Acetaminophen TAB* 325 MG PO PRN (16:54)
[2016-08-19] MEDS: clonazePAM TAB(*) 0.5 MG PO SCH (20:18)
[2016-08-19] MEDS: PROGESTERONE 200 MG PO SCH (20:19)
[2016-08-20] MEDS: Acetaminophen TAB* 325 MG PO PRN (07:23)
[2016-08-20] MEDS: Levothyroxine TAB* 88 MCG TAB PO SCH (07:23)
[2016-08-20 07:59] VITALS: BP 105/64
[2016-08-20] MEDS: Pregabalin CAP(*) 50 MG PO SCH (08:22)
[2016-08-20] MEDS: Methylphenidate TAB* 10 MG PO SCH ×2 (08:22→11:59)
[2016-08-20] MEDS: Cyanocobalamin TAB* 500 MCG PO SCH (08:23)
[2016-08-20] MEDS: Pregabalin CAP(*) 100 MG PO SCH (08:23)
[2016-08-20] MEDS: Vitamin THERAPEUTIC TAB PO SCH (08:24)
[2016-08-20] MEDS: clonazePAM TAB(*) 1 MG PO SCH (08:24)
[2016-08-20] MEDS: Polyethylene Glycol 3350* 17 GM PACKET PO SCH (08:24)
[2016-08-20] MEDS: CMC:Lurasidone (NF) 40 MG TAB PO SCH (09:07)
[2016-08-20] MEDS: CMC:Cyclosporine 0.05% OPHTH (NF) 0.4 ML VIAL BOTH EYES SCH (09:07)
--- NOTE | 2016-08-21 01:54 | DS ---
DISCHARGE SUMMARY: DATE OF ADMISSION: 08/14/16 DATE OF DISCHARGE: 08/20/16 DISCHARGE DIAGNOSES: Hamilton I: Posttraumatic stress disorder. Anorexia nervosa. Hamilton II: Deferred. Hamilton III: Osteoporosis, ovarian cyst, hypothyroidism, cholelithiasis, history of vitamin D deficiency, fibromyalgia, history of rectal prolapse in 2003. Hamilton IV: Severe primary support stressors. Hamilton V: At the time of admission was 33 and at the time of discharge is 58. CONDITION AT THE TIME OF DISCHARGE: Improved. The patient is no longer endorsing either suicidal intention or suicidal plans, although she states that continues to have vague suicidal ideations of a passive nature. These tend to be chronic in history as this is a patient who tends to get suicidal ideations at low thresholds of stress. With that having been stated, it is the patient's preference that she return to her home in the community given the fact that she has close mental health followup with both her psychotherapist as well as her psychiatrist. I have met with her mother and spoken with her brother and the family is in favor of the discharge plan. The patient is future oriented, indicating that she is going to follow up with outpatient treatment and she feels much more comfortable at her current dose of Klonopin. It is worth noting that the acute crisis leading up to this evaluation was a Klonopin taper by the patient's outpatient psychiatrist. The patient is stating that the taper was difficult for her to handle and now that she is on a slightly higher dose of Klonopin than what she came in on, she feels back to her baseline. MENTAL STATUS EXAMINATION: At the time of discharge is as follows: The patient is an extremely underweight white female with scraggly dark hair. She is visibly anxious, but makes good eye contact and we have a good working relationship. Therefore, it is easy to establish a rapport. Her speech has a normal rate, tone, and volume. Mood is anxious with a corresponding anxious affect. Thought process is linear and goal directed. Thought content is significant for her desire to be discharged from the hospital so that she can follow up with her outpatient psychologist tomorrow. Currently, she is denying suicidal ideations, but she has had these as recently as yesterday evening. She states that these are chronic in nature and she has no intention or plans to carry through with suicide. She is not homicidal. She denies auditory or visual hallucinations. Insight and judgment appear to be fair given her willingness to follow up with outpatient care. Cognitively, she is awake and alert with what appears to be an average intellect. DISCHARGE INSTRUCTIONS: To the patient are as follows: A. Medications: The patient is takin. MiraLAX 17 g p.o. b.i.d. 2. Vitamin D3 at 5000 units daily. 3. Bio-multivitamin 3 tablets p.o. daily. 4. Vitamin C 1000 mg p.o. daily. 5. Vitamin B12 at 1000 mcg p.o. daily. 6. Anafranil 75 mg in the afternoon and 150 mg at night. 7. She takes Klonopin 1 mg in the daytime and 1.25 mg in the evening. 8. Ibuprofen 800 mg as needed for pain. 9. Estradiol patch 0.05 mg per day transdermally. 10. Synthroid 88 mcg p.o. daily. 11. Musa magnesium 3 tablets p.o. b.i.d. 12. Lyrica 150 mg in the morning and 300 mg at bedtime. 13. 50 mg p.o. daily. 14. Ritalin 40 mg in the morning, 20 mg at noon, and 20 mg at 3 p.m. 15. Restasis 0.05% ophthalmic 1 drop to both eyes b.i.d. 16. Prometrium 200 mg p.o. at bedtime. 17. Zinc citrate 30 mg p.o. b.i.d. B. Diet is regular. C. Activities as tolerated. The patient is a nonsmoker. D. Followup care: The patient will see her therapist, psychologist, Gerry Ortiz. That appointment is for tomorrow, , 08/21/16, at 2:30 p.m. She also has an appointment with outpatient psychiatrist, Dr. Danielle Clarke, on 08/26/16, at 1 p.m. HOSPITAL COURSE: A. Reason for admission: The patient is a 50-year-old single white female with a history of anorexia nervosa as well as PTSD and affective problems who had several remote psychiatric hospitalizations in the who was sent to the hospital by her therapist due to suicidal ideations with a plan to cut herself with a razor. The patient does talk about 3 recent psychosocial stressors. She indicates that over the past year her 2 cats who were like children to her and therefore, she was already in an emotionally vulnerable state. She also has been providing caregiving to her mother who had some recent surgeries. A third stressor was that her outpatient psychiatrist, Dr. Danielle Clarke, had decided mutually with the patient that it would be appropriate to gently taper her clonazepam given the long- term risks of benzodiazepine treatment at the patient's age. The patient indicates that initially she was on 3 mg daily and that she had successfully weaned in a slow deliberate fashion down to 2.2 mg per day. From there, she weaned herself additionally down to 1.5 mg daily but states that at this dose, she started feeling easily flustered and having hypervigilance on the street when she would walk in public. The patient is extremely uncomfortable with this and indicates that her restrictive eating patterns have also intensified recently. Things came to a head when she was at a women's writing group where she had written down some of the traumatic and difficult things that she has been going through and she actually read this account in front of the holy cross. Apparently, she did not get the kind of positive or supportive feedback that she was expecting other than the group facilitate or later sending her a supportive e-mail. She felt distraught by this and started searching for razors and sharp objects in her house to cut with. She was able to avoid this behavior until presenting at her appointment with her therapist, Gerry Ortiz, who was very concerned about her problems and she called a taxi and had the patient sent to the hospital for evaluation. Here at our facility, she was extremely anxious because of her past trauma history. She is uncomfortable with male clinicians and requested that she be evaluated with a female staff member present. She was nervous, tense, and appears to be undernourished. On exam, she mostly complains of anxiety symptoms as well as hypervigilance secondary to PTSD. She denied psychotic symptoms. She did endorse depression, but denies most neurovegetative symptoms. B. Psychiatric treatment rendered: The patient was admitted to the adult behavioral health unit where she was placed on q.30 minute checks for her own safety. The patient felt strongly that the decrease from 2.25 mg to 1.5 mg of clonazepam was the ochoa variable in her decompensation and she was agreeable to increasing this back to a total dose of Klonopin 1 mg in the morning and 1.25 mg in the evening. As previously stated, she is anxious around men and for this reason, I always saw her in the presence of supportive female staff and this was for the patient's comfort. The patient did develop a good therapeutic relationship with me and she was calm and cooperative throughout all of the interventions that I had with her. Her family was involved in her treatment and I spoke initially in a conference call with her mother and her brother who resides in [place]. The day prior to discharge, her mother actually came in for a family meeting. The family was made aware of the rationale behind our treatment plan and they were in agreement and also agreement with the discharge plan at her time of leaving our unit. They feel that she is back to her baseline and they are aware that chronic suicidality is an issue. I was also able to reach Dr. Danielle Clarke who did confirm the patient's history that she has been receiving a gradual tapering of her Klonopin dose. Dr. Clarke was fine with increasing the dose back to 2.25 mg total and we were able to bump her appointment up by a week establishing that for 08/26/16. We also had contact with Gerry Ortiz who indicated that she would see the patient the day following discharge. At this time, the patient denies suicidality, but she did have some passive suicidal thoughts the night prior to discharge. It is my sense that fairly low amounts of stress make her ruminate on suicidality. With that in mind though, she is denying any plan to harm herself or any intention of ending her life. She is requesting discharge and I do not feel that I have any legal justification to keep her on an involuntary basis. The patient is transferred back to the good care of her outpatient providers and we wish her the best for a safe and healthy future. [id number]/[facility] #: [id number] JNAICE
== END 2016-08-20 12:15 | disposition home or self-care (01) | DRG 882 ==
LOC: ED 13:46 → BSU 23:20
PROVIDERS: ADMIT Psychiatry & Neurology Psychiatry; ATTEND Psychiatry & Neurology Psychiatry
DX: F43.10 Post-traumatic stress disorder, unspecified (principal); F50.00 Anorexia nervosa, unspecified; R45.851 Suicidal ideations; M81.0 Age-related osteoporosis without current pathological fracture; N83.209 Unspecified ovarian cyst, unspecified side; E03.9 Hypothyroidism, unspecified; K80.20 Calculus of gallbladder without cholecystitis without obstruction; E55.9 Vitamin D deficiency, unspecified; M79.7 Fibromyalgia
CPT/HCPCS: 36415; 80053; 80061; 80307; 80320; 80329; 81003; 82607; 83036; 84443; 85025; 90853; 99222; 99231; 99238; A9270-GY; G0480

== ENCOUNTER 2018-04-21 12:28 | Day surgery (SDC) | payer MEDICARE, MEDICAID ==
[~2018-04-21 12:28] MED LIST: Buffered Lidocaine 0.9% SYRIN* 5 ML/SYR SYRINGE INTRADERM ONE
[2018-04-21] MEDS ORDERED: HYDROmorphone INJ* 0.5 MG/0.5 ML SYRINGE ONE (12:29)
[2018-04-21] MEDS ORDERED: HYDROmorphone INJ1* 1 MG/ML SYRINGE ONE (12:32)
[2018-04-21] MEDS ORDERED: fentaNYL* 50 MCG/ML 2 ML VIAL (100 MCG VIAL) ONE (13:24)
[2018-04-21] MEDS ORDERED: Midazolam* 1 MG/ML 5 ML VIAL (5 MG) ONE (13:24)
[2018-04-21] MEDS ORDERED: Propofol* 10 MG/ML 20 ML BTL IV PUSH ONE (13:47)
[2018-04-21] MEDS ORDERED: Ondansetron INJ* 2 MG/ML VIAL IV PRN (14:08)
[2018-04-21] MEDS ORDERED: Naloxone* 0.4 MG/ML 1 ML VIAL IV PRN (14:08)
[2018-04-21 15:20] VITALS: BP 147/77
--- NOTE | 2018-04-22 04:05 | PRO ---
DATE OF PROCEDURE: 04/21/18 [facility] PROCEDURE: Colonoscopy. INDICATIONS: Colonoscopy in 2007 was negative for polyps. Due for colon cancer screening. Seen in clinic with some complaints of diarrhea, which was attributed to patient taking magnesium for chronic constipation. She decreased the dose of her magnesium and her bowel movements have now become normal. No ongoing diarrhea. MEDICATIONS: Given by Anesthesia. DESCRIPTION OF PROCEDURE: Full disclosure of risks were reviewed with the patient as detailed on the consent form. The patient was placed in the left lateral decubitus position and monitored with continuous pulse oximetry, capnography, interval blood pressure monitoring, and direct observation. After anorectal examination was performed, the pediatric colonoscope was inserted into the rectum and advanced under direct vision to the level of the cecum. The cecum was fully inflated allowing complete view including medial wall between the IC valve and the appendicial orifice. Quality of the prep was fair. The insertion of the colonoscope was a bit difficult due to a tortuous splenic and hepatic flexure leading to looping of the pediatric scope. Abdominal pressure was able to help traverse the splenic flexure. The patient was placed on her back to help with advancing the scope through the hepatic flexure. Careful inspection was made as the colonoscope was withdrawn. A retroflexed view of the rectum was performed. Findings and interventions are described below. FINDINGS: The anorectal exam was unremarkable. The scope was advanced to the level of the cecum. The scope was then withdrawn throughout the length of the colon, and the colonic mucosa was carefully examined. There was melanosis coli throughout the transverse and right colon secondary to chronic laxative use. There were no polyps, masses, AVM's, or diverticular disease noted. The scope was withdrawn to the level of the rectum and retroflexion was performed. The retroflexion was unremarkable. Scope was then withdrawn from the patient. The patient tolerated the procedure well and was recovered in the GI recovery area. IMPRESSION: 1. Technically difficult colonoscopy as above. 2. No polyps seen. 3. Melanosis coli. FOLLOW UP: 1. Repeat colonoscopy in 10 years for this average risk patient. Thank you very much for this kind referral. [id number]/[facility] #: [id number] MTDD
== END 2018-04-21 15:21 | disposition home or self-care (01) ==
LOC: OR 12:28
PROVIDERS: ATTEND Internal Medicine Gastroenterology
DX: Z12.11 Encounter for screening for malignant neoplasm of colon (principal); K63.89 Other specified diseases of intestine; Z87.891 Personal history of nicotine dependence; E03.9 Hypothyroidism, unspecified; F41.8 Other specified anxiety disorders
CPT/HCPCS: J1170; J2250; J2704; J3010

== ENCOUNTER 2018-08-17 10:39 | Inpatient (IN) | payer MEDICARE, MEDICAID ==
--- NOTE | 2018-08-10 10:11 | HP ---
HISTORY AND PHYSICAL: DATE OF SURGERY: 08/17/18 DATE OF OFFICE VISIT: 08/09/18 SURGEON: Ritu Escobar MD.* (DICTATED BY KYRIE NAIK) PROCEDURE: Left total knee arthroplasty. CHIEF COMPLAINT: Left knee pain. HISTORY OF PRESENT ILLNESS: Ms. Alarcon is a 52-year-old female with end-stage osteoarthritis of the left knee. She has failed conservative treatment and elected to proceed with a left total knee arthroplasty. PAST MEDICAL HISTORY: Depression, hypothyroidism, fibromyalgia, history of pulmonary embolism, and anxiety. PAST SURGICAL HISTORY: Rectal prolapse surgery, ileostomy, reversal of an ileostomy, tracheostomy, hernia repair, cholecystectomy, hysteroscopy, and D and C. CURRENT MEDICATIONS: 1. Meloxicam 50 mg daily. 2. Clonazepam 1 mg daily. 3. Glimepiride 75 mg and 25 mg. 4. Levothyroxine 88 mcg a day. 5. Risperidone 8 mg a day. 6. Restasis. 7. Lyrica 150 mg twice a day. 8. Prazosin 5 mg a day. 9. Provera. ALLERGIES: No known drug allergies. FAMILY HISTORY: Cancer and coronary artery disease. SOCIAL HISTORY: She is a 52-year-old female. She lives alone. She does not smoke, use drugs or alcohol. REVIEW OF SYSTEMS: A complete 14-point review of systems was reviewed with the patient. It is positive for hypothyroidism and history of pulmonary embolism in 2002. She denies history of HIV, hepatitis, MRSA, or anesthesia problems. PHYSICAL EXAMINATION GENERAL: She is well developed, well nourished, in no acute distress. VITAL SIGNS: She stands 67 inches tall, weighs 168 pounds. Her blood pressure is 118/78. Her heart rate is 97. HEENT: Normocephalic, atraumatic. NECK: Supple. No palpable lymph nodes. PULMONARY: Lungs are clear to auscultation bilaterally. CARDIAC: Regular rate and rhythm. Strong S1, S2. ABDOMEN: Soft, nontender, nondistended. NEUROLOGICAL: She is alert and oriented x3. MUSCULOSKELETAL: Left lower extremity: The skin is intact. There are no open wounds or abrasions. There is a moderate joint effusion of the left knee. She has tenderness over the medial and lateral joint line. Range of motion is 5 to 125 degrees of flexion. She has 5/5 lower extremity strength with 2+ dorsalis pedis pulse with an intact sensation. ASSESSMENT AND PLAN: Ms. Alarcon is a 52-year-old female with end-stage osteoarthritis of the left knee. She has failed conservative treatment and elected to proceed with a left total knee arthroplasty. The surgery is scheduled for 08/17/[address] Escobar discussed the risks and benefits of the surgery at today's visit and all of her questions were answered. She will follow up with Dr. Escobar 2 weeks after the surgery. Due to the history of a pulmonary embolism, she will not get TXA. KYRIE NAIK [id number]/[facility] #: [id number] MTDD
[~2018-08-17 10:39] MED LIST changes: +Acetaminophen TAB* 325 MG PO ONE; -Buffered Lidocaine 0.9% SYRIN* 5 ML/SYR SYRINGE INTRADERM ONE; +Buffered Lidocaine 1% SYRIN* 1 ML/SYRINGE INTRADERM ONE; +Dexamethasone IV* 4 MG/ML 1 ML (4 MG) IV SLOW PU ONE; +Famotidine IV* 10 MG/ML 2 ML (20 mg) IV ONE; +Lactated Ringers 1000 ML Bag* 1,000 ML IV SCH
--- OUTSIDE RECORDS SUMMARY | 2018-08-17 10:43 | XMS REPORT | Continuity of Care Document ---
:1965 External Reference #:[id number] Author Name Jocelyne Bush Care Team Providers Name Role Phone Edith Garrison MD Primary Care Physician Unavailable Payers Date Identification Numbers Payment Provider Subscriber Policy Number: [id number] Medicare Lizzette Alarcon PayID: [id number] [address] [place] [address] Policy Number: [id number] Medicaid Lizzette Alarcon Group Name: 1 1 [address] PayID: [id number] [place] [address] Advance Directives Description No Information Available Problems Date Description Provider Status Onset: 02/05/2018 Localized, primary osteoarthritis Ritu Escobar M.D. Active Family History Date Family Member(s) Observation Comments General Heart Disease General Stroke General Cancer Social History Type Date Description Comments Sex Unknown Lives With Alone Occupation Disabled ETOH Use Denies alcohol use Tobacco Use Start: Unknown End: Patient is a former Unknown smoker Tobacco Use Start: Unknown End: Patient is a former quit 24 years ago Unknown smoker Smoking Status Reviewed: 08/09/18 Patient is a former quit 24 years ago smoker Exercise Type/Frequency Exercises regularly Allergies, Adverse Reactions, Alerts Description No Known Drug Allergies Medications Medication Date Status Form Strength Qnty SIG Indications Ordering Provider Meloxicam 02/05/ Active Tablets 15mg 90tabs 1 by mouth M25.462 Ritu 2017 every day Jaylen Escobar Clonazepam / Active Tablets 1mg Unknown 0000 Clomipramine HCL / Active Unknown 0000 Levothyroxine / Active Tablets 88mcg 1 by mouth Unknown Sodium 0000 every day Risperidone / Active Tablets 8mg Unknown 0000 Restasis / Active Emulsion 0.05% Unknown 0000 Lyrica / Active Capsules 150mg 1 by mouth Unknown 0000 twice a day Prazosin HCL / Active Capsules 5mg 1 daily in Unknown 0000 evening Gavilyte-C / Active Solution 240gm [place] 0000 Tracy Lopes M.D. Hydrocortisone / Active Ointment 2.5% Apply To Unknown 0000 Affected Area(S) Two Times Daily For 14 Days Provera / Active Tablets 10mg one tablet Unknown 0000 daily x 10 days (can stop sooner if bleeding starts) Medications Administered in Office Medication Date Status Form Strength Qnty SIG Indications Ordering Provider Depomedrol Administered Injection Ritu 40MG 019 Jaylen Escobar Depomedrol Administered Injection Ritu 40MG Yousuf Escobar M.D. Injection Administered Injection Ritu Hyaluronan Or Yousuf Escobar M.D. Derivative, Euflexxa Per Dose Injection Administered Injection Ritu Hyaluronan Or 018 Jaylen Escobar Derivative, Euflexxa Per Dose Injection Administered Injection Ritu Hyaluronan Or Yousuf Escobar M.D. Derivative, Euflexxa Per Dose Depomedrol Administered Injection Ritu 40MG Yousuf Escobar M.D. Immunizations Description No Information Available Vital Signs Date Vital Result Comment 08/09/2018 9:11am Height 67 inches 5'7" Weight 168.50 lb Heart Rate 97 /min BP Systolic 118 mmHg BP Diastolic 78 mmHg Respiratory Rate 18 /min Body Temperature 97.6 F Pain Level 7 BMI (Body Mass Index) 26.4 kg/m2 07/23/2018 1:51pm Height 67 inches 5'7" BP Systolic 111 mmHg BP Diastolic 70 mmHg Respiratory Rate 16 /min Pain Level 2 07/09/2018 8:40am Height 67 inches 5'7" BP Systolic 110 mmHg BP Diastolic 60 mmHg Respiratory Rate 16 /min Body Temperature 97.3 F 06/18/2018 1:11pm Height 67 inches 5'7" Heart Rate 80 /min BP Systolic 124 mmHg BP Diastolic 90 mmHg Body Temperature 97.5 F Pain Level 7 05/17/2018 11:01am Height 67 inches 5'7" Heart Rate 84 /min BP Systolic 130 mmHg BP Diastolic 76 mmHg Respiratory Rate 18 /min Body Temperature 98.0 F Pain Level 5 04/12/2018 2:42pm Height 67 inches 5'7" Weight 150.00 lb BP Systolic 120 mmHg BP Diastolic 78 mmHg Body Temperature 97.8 F BMI (Body Mass Index) 23.5 kg/m2 04/09/2018 10:02am Height 67 inches 5'7" Weight 157.00 lb BP Systolic 132 mmHg BP Diastolic 81 mmHg Respiratory Rate 15 /min Pain Level 4 BMI (Body Mass Index) 24.6 kg/m2 04/02/2018 10:27am Height 67 inches 5'7" Weight 157.00 lb BP Systolic 124 mmHg BP Diastolic 70 mmHg Respiratory Rate 15 /min Body Temperature 97.4 F Pain Level 6 BMI (Body Mass Index) 24.6 kg/m2 03/26/2018 3:39pm Height 67 inches 5'7" Weight 157.00 lb Heart Rate 69 /min Respiratory Rate 16 /min Pain Level 7 BMI (Body Mass Index) 24.6 kg/m2 03/05/2018 10:10am Height 67 inches 5'7" Weight 158.00 lb BP Systolic 102 mmHg BP Diastolic 64 mmHg Respiratory Rate 16 /min Pain Level 8 BMI (Body Mass Index) 24.7 kg/m2 02/05/2018 9:50am Height 67 inches 5'7" Weight 161.00 lb Heart Rate 64 /min BP Systolic Sitting 118 mmHg BP Diastolic Sitting 78 mmHg Body Temperature 96.8 F Pain Level 8 BMI (Body Mass Index) 25.2 kg/m2 Results Description No Information Available Procedures Date Code Description Status 07/09/2018 Inject/Drain Joint/Bursa Major W/O US Completed 04/12/2018 Inject/Drain Joint/Bursa Major W/O US Completed 04/09/2018 Inject/Drain Joint/Bursa Major W/O US Completed 04/02/2018 Inject/Drain Joint/Bursa Major W/O US Completed 03/26/2018 Inject/Drain Joint/Bursa Major W/O US Completed 02/05/2018 Inject/Drain Joint/Bursa Major W/O US Completed 11/09/2013 92283 Cholecystectomy Completed Encounters Type Date Location Provider Dx Diagnosis Office Visit 07/23/2018 [facility] Ritu Escobar, M25.561 [facility] M25.461 Effusion, right knee M17.11 Unilateral primary osteoarthritis, right knee M17.12 Unilateral primary osteoarthritis, left knee M25.562 Pain in left knee M25.462 Effusion, left knee M21.062 Valgus deformity, not elsewhere classified, left knee Office Visit 07/09/2018 8:30a [facility] Escobar, M25.561 Pain in right [facility] knee M25.461 Effusion, right knee M17.11 Unilateral primary osteoarthritis, right knee Office Visit 06/18/2018 [facility] Ritu M17.12 Unilateral primary 1:15p [facility] osteoarthritis, left [facility] knee M25.562 Pain in left knee M25.462 Effusion, left knee M21.062 Valgus deformity, not elsewhere classified, left knee Office Visit 05/17/2018 [facility] Ritu M17.12 Unilateral primary 10:45a [facility] osteoarthritis, left C.M.A. knee M25.562 Pain in left knee M25.462 Effusion, left knee Office Visit 04/12/2018 [facility] Ritu M17.12 Unilateral primary 2:45p [facility] osteoarthritis, left [facility].M.[facility]. knee M70.61 Trochanteric bursitis, right hip Office Visit 03/05/2018 10:15a [facility] Escobar, M25.562 Pain in left Of [facility] knee M25.462 Effusion, left knee M17.12 Unilateral primary osteoarthritis, left knee Office Visit 02/05/2018 9:15a [facility]obar, M25.562 Pain in left Of [facility] M.[facility]. knee M25.462 Effusion, left knee M17.12 Unilateral primary osteoarthritis, left knee Office Visit 10/23/2013 4:10p [facility] Олег Hayes, 576.2 Obstruction Bile Assocting M.D. [facility] 311 Depressive Disorder Not Elsewhere Spec Office Visit 10/22/2013 4:09p [facility] Олег Hayes, 576.2 Obstruction Bile Assocting M.D. [facility] 311 Depressive Disorder Not Elsewhere Spec [facility]2 Obst[facility] B[facility] Assoc,[facility] N.P. [facility] 311 Depressive Disorder Not Elsewhere Spec Plan of Treatment Future Appointment(s):08/30/2018 8:45 am - Ritu Escobar M.D. at [facility].08/17/2018 3:15 pm - Alireza Stockton PA-C at [facility].08/17/2018 3:15 pm - KYRIE Ricci at [facility].08/17/2018 3:15 pm - Ritu Escobar M.D. at [facility].08/09/2018 - Ritu Escobar M.D.M17.12 Unilateral primary osteoarthritis, left kneeFollow up:Follow up: 2 weeks after erlklliD10.562 Pain in left kneeM25.462 Effusion, left kneeM21.062 Valgus deformity, not elsewhere classified, left knee
[2018-08-17] MEDS ORDERED: Midazolam* 1 MG/ML 2 ML VIAL (2 MG) ONE (11:01)
[2018-08-17] MEDS ORDERED: fentaNYL* 50 MCG/ML 2 ML VIAL (100 MCG VIAL) ONE ×2 (11:01→17:49)
[2018-08-17] MEDS ORDERED: Propofol* 10 MG/ML 20 ML BTL ONE (11:01)
[2018-08-17] MEDS ORDERED: Dexamethasone IV* 4 MG/ML 1 ML (4 MG) ONE (11:02)
[2018-08-17] MEDS ORDERED: Acetaminophen TAB* 325 MG ONE (11:02)
[2018-08-17] MEDS ORDERED: Famotidine IV* 10 MG/ML 2 ML (20 mg) ONE (11:03)
[2018-08-17] MEDS ORDERED: Buffered Lidocaine 1% SYRIN* 1 ML/SYRINGE INTRADERM ONE (11:03)
[2018-08-17] MEDS ORDERED: ceFAZolin 2 GM PREMIX in ORs 2 GM/50 ML BAG IVPB ONE (11:03)
[2018-08-17] MEDS ORDERED: Lidocaine 1%* 5 ML VIAL ONE (13:07)
[2018-08-17] MEDS ORDERED: ROPIVACAINE 5 MG/ML 30 ML BTL (0.5%) ONE ×2 (13:07→13:53)
[2018-08-17] MEDS ORDERED: Bupivacaine 0.5%* 50 ML VIAL ONE (13:21)
[2018-08-17] MEDS ORDERED: Bupivacaine-MPF SPINAL* 7.5 MG/ML - 2ML AMP ONE ×2 (13:49→14:47)
[2018-08-17] MEDS ORDERED: Lidocaine 2% PF * 5 ML VIAL ONE (13:49)
[2018-08-17] MEDS ORDERED: KETAMINE HCL* 50 MG/ML 10 ML VIAL ONE (14:07)
[2018-08-17] MEDS ORDERED: Propofol* 500 MG/50 ML BTL ONE (14:47)
[2018-08-17] MEDS ORDERED: Ondansetron INJ* 2 MG/ML VIAL IV PRN ×2 (15:02→16:11)
[2018-08-17] MEDS ORDERED: Ketorolac INJ* 30 MG/ML 1 ML VIAL IV PRN (15:02)
[2018-08-17] MEDS ORDERED: HYDROmorphone INJ1* 1 MG/ML SYRINGE IV PRN (15:02)
[2018-08-17] MEDS ORDERED: Naloxone* 0.4 MG/ML 1 ML VIAL IV PRN (15:02)
[2018-08-17] MEDS ORDERED: Acetaminophen IV 1GM/100ML * 1,000 MG/100 ML VIAL IVPB ONE (15:02)
[2018-08-17] MEDS ORDERED: oxyCODONE TAB* 5 MG TAB PO PRN (15:02)
[2018-08-17] MEDS ORDERED: oxyCODONE/Acetamin 5/325 MG* TAB PO PRN (16:11)
[2018-08-17] MEDS ORDERED: Bisacodyl SUPP* 10 MG SUPP PR PRN (16:11)
[2018-08-17] MEDS ORDERED: diPHENhydraMINE IV* 50 MG/ML 1 ml VIAL (BENADRYL) IV PRN (16:11)
[2018-08-17] MEDS ORDERED: Ondansetron TAB* 4 MG PO PRN (16:11)
[2018-08-17] MEDS ORDERED: Magnesium Hydroxide LIQ* 30 ML UDC PO PRN (16:11)
[2018-08-17] MEDS ORDERED: Cyclobenzaprine TAB* 10 MG PO PRN (16:11)
[2018-08-17] MEDS ORDERED: Morphine VIAL* 4 MG/ML VIAL (1 ml vial) IV PRN (16:11)
[2018-08-17] MEDS ORDERED: Polyethylene Glycol 3350* 17 GM PACKET PO PRN (16:11)
[2018-08-17] MEDS ORDERED: traMADol TAB* 50 MG PO PRN (16:11)
[2018-08-17] MEDS ORDERED: ceFAZolin 1 GM ADVAN(*) 1 GM in NS 0.9% 50 ML* 50 ML IVPB SCH (17:00)
[2018-08-17] MEDS ORDERED: Lactated Ringers 1000 ML Bag* 1,000 ML IV SCH (17:00)
--- NOTE | 2018-08-17 17:04 | PN ---
Progress Note - Progress Note Date of Service: 08/17/18 Note: Pt seen POD 0 in PACU. She has no knee pain. Denies CP, SOB, dizziness or nausea. DF/PF intact, Sensation intact to light touch distally, DP2+. She has a history of PE. She is on eliquis for DVT prophylaxis.
[2018-08-17] MEDS ORDERED: Acetaminophen IV 1GM/100ML * 100 ML ONE (17:10)
[2018-08-17] MEDS ORDERED: oxyCODONE TAB* 5 MG TAB ONE ×2 (17:49→17:56)
[2018-08-17] MEDS ORDERED: Ketorolac INJ* 30 MG/ML 1 ML VIAL ONE (17:49)
[2018-08-17] MEDS: fentaNYL* 50 MCG/ML 2 ML VIAL (100 MCG VIAL) IV PRN ×2 (17:51→18:55)
[2018-08-17] MEDS ORDERED: clonazePAM TAB(*) 1 MG PO SCH (21:00)
[2018-08-17] MEDS: Docusate CAP* 100 MG PO SCH (22:39)
[2018-08-17] MEDS: Magnesium Hydroxide LIQ* 30 ML UDC PO SCH (22:39)
[2018-08-17] MEDS: Prazosin CAP* 5 MG PO SCH (22:39)
[2018-08-17] MEDS: risperiDONE TAB* 2 MG PO SCH (22:39)
[2018-08-17] MEDS: Pregabalin CAP(*) 100 MG PO SCH ×2 (22:40→22:56)
[2018-08-17] MEDS: oxyCODONE/Acetamin 5/325 MG* TAB PO PRN (22:41)
[2018-08-17] MEDS: ceFAZolin 1 GM in Dextrose (*) 1 GM/50 ML BAG IVPB SCH (22:44)
[2018-08-17] MEDS ORDERED: Pregabalin CAP(*) 100 MG ONE (22:50)
[2018-08-18] MEDS: Acetaminophen TAB* 325 MG PO SCH ×3 (01:34→16:33)
[2018-08-18] MEDS: oxyCODONE TAB* 5 MG TAB PO PRN ×2 (02:07→08:04)
[2018-08-18] MEDS: oxyCODONE/Acetamin 5/325 MG* TAB PO PRN (05:28)
[2018-08-18] MEDS: ceFAZolin 1 GM in Dextrose (*) 1 GM/50 ML BAG IVPB SCH ×2 (05:29→15:00)
[2018-08-18] MEDS: Levothyroxine TAB* 88 MCG TAB PO SCH (05:29)
[2018-08-18 06:03] LABS: Hematocrit 31 % (35-47); Hemoglobin 10.7 g/dl (12.0-16.0); Platelet Count 170 10^3/ul (150-450)
[2018-08-18 06:22] LABS: BUN/Creatinine Ratio 20.7 (8-20); Calcium 8.3 mg/dL (8.6-10.3); EGFR African American 87.9 (>60); EGFR Non-African American 72.6 (>60); Potassium 4.2 mmol/L (3.5-5.0)
[2018-08-18] MEDS: Magnesium Hydroxide LIQ* 30 ML UDC PO SCH ×2 (08:03→20:41)
[2018-08-18] MEDS: Apixaban* 2.5 MG TAB PO SCH ×2 (08:04→21:52)
[2018-08-18] MEDS: Docusate CAP* 100 MG PO SCH ×2 (08:04→20:41)
[2018-08-18] MEDS: clonazePAM TAB(*) 1 MG PO SCH (08:04)
[2018-08-18] MEDS: Pregabalin CAP(*) 50 MG PO SCH (08:04)
--- NOTE | 2018-08-18 08:47 | OP ---
DATE OF OPERATION: 08/17/18 - ROOM #348 DATE OF : 61 ATTENDING SURGEON: Ritu Escobar MD DOCTOR OF NAPRAPATHY: KYRIE Vivar. Ms. Gerard did help throughout the procedure with preparation of the leg, wound retraction, manipulation of the knee, and wound closure. ANESTHESIOLOGIST: Dr. Smith. ANESTHESIA: Spinal. PRE-OP DIAGNOSIS: Severe end-stage degenerative osteoarthritis of the left knee joint with valgus deformity. POST-OP DIAGNOSIS: Severe end-stage degenerative osteoarthritis of the left knee joint with valgus deformity. OPERATIVE PROCEDURE: Left total knee arthroplasty. TOURNIQUET TIME: 47 minutes. COMPLICATIONS: None. SPECIMENS: Bone and cartilage from the left knee joint sent to Pathology. HARDWARE USED: This is a cemented [employer]ore[employer] Nephew total knee arthroplasty hardware. Two packages of Simplex bone cement. For the femur, a left Legion narrow, size-5 Oxinium posterior stabilized femoral component. For the tibia, left size-3 Syeda II tibial baseplate. For the insert, a 9-mm posterior stabilized articular insert size 3-4. For the patella, a 32 mm 3-peg all-poly patella with 7.5 thickness. BRIEF HISTORY/INDICATIONS: Ms. Alarcon is a 52-year-old female with years of increasingly severe left knee pain and valgus deformity. Radiographs showed [id number] arthritis. She failed conservative treatment with antiinflammatories, pain medications, intraarticular injections, and physical therapy. Due to continued pain and decreased quality of life, she elected to undergo a left total knee arthroplasty. Informed consent was obtained from the patient. She understood the risks of surgery included but were not limited to bleeding, infection, damage to nearby structures, continued pain, need for further surgery, intraoperative fracture, nerve palsy, hardware failure or loosening, knee stiffness, loss of motion, anesthesia complications, stroke, heart attack, blood clot, and . She wished to proceed. INTRAOPERATIVE FINDINGS: Intraoperatively the patient was noted to have full- thickness loss of cartilage in the patellofemoral and lateral compartments. Preop valgus deformity was 12 degrees. DESCRIPTION OF PROCEDURE: Ms. Alarcon was identified in the preanesthesia unit. Her left lower extremity was marked as the correct operative side. Informed consent was signed and placed in the chart. The patient was taken to the operating room and placed under anesthesia. A Richard catheter was placed. The patient's left thigh had a tourniquet placed. Left lower extremity was prepped and draped in the usual sterile fashion. Preop time-out was made to correctly identify the patient, side and site. Appropriate perioperative antibiotics were given within 1 hour of incision. Tourniquet was inflated and total tourniquet time for this procedure was 47 minutes. Midline incision was made with a 10 blade and carried down to the extensor mechanism. New 10 blade was used to make a standard medial parapatellar arthrotomy. The patella was subluxed laterally. Electrocautery was used to subperiosteally elevate soft tissue off the superomedial tibia to the mid sagittal plane. The knee was flexed up. The anterior horn of the lateral meniscus and ACL were sharply released. A drill was used to enter the distal femur. Intramedullary distal femoral cutting guide was pinned on the distal femur. Oscillating saw was used to make the distal femoral cut. External rotation guide was pinned on the distal femur. Distal femur was sized to a size 5. Size-5 multi-cutting jig was pinned on the distal femur. Oscillating saw was used to make the appropriate 4 chamfer cuts. PCL was completely released. Tibia was subluxed anteriorly. Extramedullary tibial cutting guide was pinned on the proximal tibia. Oscillating saw was used to make a proximal tibial cut perpendicular to the mechanical axis of the tibia. The bone was carefully removed. The knee was brought out into full extension. The spacer block had good fit with the knee in full extension. There was good medial and lateral ligamentous balancing. Flexion and extension gap was well balanced. The knee was flexed up. Lamina evs manager was placed both medially and laterally. Any remaining meniscus was carefully removed using electrocautery. Curved osteotome was used to remove any posterior osteophytes. Tibial tray and drop lety were placed and once again confirmed a satisfactory tibial cut. A size-5, narrow left femoral trial was impacted on to the distal femur and had excellent fit and stability. The box for the posterior stabilized implant was prepared using a reamer and box-cut osteotome. A size 3 tibial tray trial with a 9-mm insert trial was placed and the knee was taken through range of motion. The knee had full extension to 130 degrees of flexion with satisfactory patellofemoral tracking. The patella was everted. 7 mm of patellar bone and cartilage was carefully removed using an oscillating saw. Patella was sized to a size 32. Three peg holes were drilled through the size-32 guide. The 32 trial patella with 7.5 thickness was placed and the knee was taken through range of motion. There was satisfactory patellofemoral tracking. All trials were carefully removed. Tibia was sized to a size 3. Proximal tibia was prepared using a size 3 keel punch. All bony cut surfaces were copiously irrigated with sterile saline and dried. Final implants were cemented into place starting with tibia followed by the femur and last the patella. A 9-mm insert trial was placed and the knee was brought out into full extension. The tourniquet was turned down at 47 minutes. Electrocautery was used to obtain meticulous hemostasis. The knee was copiously irrigated with sterile saline. Once the cement had fully cured, the insert trial was removed. Any excess cement was removed from around the capsule and hardware. Final insert chosen was a 9-mm posterior stabilized articular insert size 3/4. This was locked into position on the tibial tray. Stability of the insert was checked and rechecked and noted to be stable. The extensor mechanism was closed using interrupted #1 Vicryls. The rest of the incision was closed in a layered fashion using 0 and 2-0 Vicryls. Skin was closed using running 3-0 nylon suture. Sterile Xeroform, 4x4s, and Webril were used to cover the incision. The patient's anesthesia was reversed without difficulty. She was taken to the PACU in stable condition. Intended weight bearing will be weight bearing as tolerated. Intended DVT prophylaxis will be Eliquis. [id number]/[facility] #: [id number] [facility]
--- NOTE | 2018-08-18 09:36 | PN ---
Progress Note - Progress Note Date of Service: 08/18/18 SOAP: Subjective: []Pt seen at bedside. She is very sedated. Denies CP, SOB, dizziness, nausea. Left knee pain is well controlled. Objective: []General: Well appearing, NAD, alert and oriented x 3 LLE: Left knee dressing CDI with cryo cuff in use, DF/PF intact, DP2+, sensation intact to light touch distally. Calves supple and nontender without erythema, edema or palpable cords Assessment: []pod 1 s/p LTK Plan: []WBAT PT/OT eliquis 2.5 mg PO BID LR 1000 ml bolus Hold narcotics for now, use minimally going forward due to sedation Discussed history of suicidal ideation with patient. She states she has a long history of suicidal ideation though has not had active SI in 1 year. In the past she has thought about taking pills or jumping off of a roof, she has had the bottle of pills to her disposal and has been on the roof with thoughts of jumping but has not proceed further with an attempt. She sees Dr Clarke outpatient and feels her suicidal ideation is well controlled at this time with no acute exacerbation. Yesterday she reported thoughts of wishing she were not alive though without any plan of harming herself. Today she reports will to live and that she would not hurt herself. Confirms if she has suicidal ideation she will alert staff and feels safe at this time. If she has any suicidal ideation I would recommend psych consult in house, but at this time she is baseline and not having SI to warrant an urgent consult. Vital Signs Temp 97.9 F 08/18/18 07:45 Pulse 82 08/18/18 07:45 Resp 18 08/18/18 08:04 BP 100/65 08/18/18 07:45 Pulse Ox 94 08/18/18 07:45 Intake & Output 08/17/18 08/18/18 08/18/18 18:59 06:59 18:59 Intake Total 2049 955 210 Output Total 970 2155 Balance 1080 -1200 210 Weight 170 lb 9.6 oz Intake: IV Fluids 2049 55 ABX - CEFAZOLIN 55 LR 2000 NS 50ML, Cefazolin 2G 50 Oral 900 210 Output: Richard 820 2155 Estimated Blood Loss 150 Laboratory Last Values Hgb 10.7 g/dl (12.0-16.0) L 08/18/18 05:47 Hct 31 % (35-47) L 08/18/18 05:47 Plt Count 170 10^3/ul (150-450) 08/18/18 05:47 MPV 9.0 fL (7.4-10.4) 08/18/18 05:47 Sodium 135 mmol/L (135-145) 08/18/18 05:47 Potassium 4.2 mmol/L (3.5-5.0) 08/18/18 05:47 Chloride 101 mmol/L (101-111) 08/18/18 05:47 Carbon Dioxide 32 mmol/L (22-32) 08/18/18 05:47 Anion Gap 2 mmol/L (2-11) 08/18/18 05:47 BUN 17 mg/dL (6-24) 08/18/18 05:47 Creatinine 0.82 mg/dL (0.51-0.95) 08/18/18 05:47 Est GFR ( Amer) 87.9 (>60) 08/18/18 05:47 Est GFR (Non-Af Amer) 72.6 (>60) 08/18/18 05:47 BUN/Creatinine Ratio 20.7 (8-20) H 08/18/18 05:47 Glucose 105 mg/dL (70-100) H 08/18/18 05:47 Calcium 8.3 mg/dL (8.6-10.3) L 08/18/18 05:47
[2018-08-18] MEDS ORDERED: Lactated Ringers 1000 ML Bag* 1,000 ML IV SCH (10:00)
[2018-08-18] MEDS ORDERED: Naloxone* 0.4 MG/ML 1 ML VIAL ONE ×2 (13:49→14:01)
[2018-08-18] MEDS ORDERED: Naloxone* 0.4 MG/ML 1 ML VIAL IV PUSH ONE ×2 (14:11)
[2018-08-18] MEDS ORDERED: NS 0.9% 1000 ML** 1,000 ML IV ONE (14:18)
[2018-08-18] MEDS ORDERED: Naloxone* 0.4 MG/ML 1 ML VIAL IV PUSH PRN (14:19)
[2018-08-18 14:24] LABS: ABS Basophils 0 10^3/ul (0-0.2); ABS Eosinophils 0.1 10^3/ul (0-0.6); ABS Lymphocytes 0.8 10^3/ul (1.0-4.8); ABS Monocytes 0.7 10^3/ul (0-0.8); ABS Nucleated RBC 0 10^3/ul; Hematocrit 28 % (35-47); Hemoglobin 9.7 g/dl (12.0-16.0); Lymphocyte % 10.3 %; Mean Corpuscular HGB Conc 34 g/dl (31-36); Mean Corpuscular Hemoglobin 33 pg (27-31); Mean Corpuscular Volume 96 fL (80-97); Mean Platelet Volume 9.5 fL (7.4-10.4); Nucleated Red Blood Cells % 0; Platelet Count 148 10^3/ul (150-450); Red Blood Count 2.95 10^6/ul (4.00-5.40); Red Cell Distribution Width 13 % (10.5-15); White Blood Count 7.5 10^3/ul (3.5-10.8)
[2018-08-18 14:38] LABS: Albumin 3.1 g/dL (3.2-5.2); Albumin/Globulin Ratio 1.8 (1-3); BUN/Creatinine Ratio 17.3 (8-20); Calcium 7.7 mg/dL (8.6-10.3); EGFR African American 53.1 (>60); EGFR Non-African American 43.9 (>60); Globulin 1.7 g/dL (2-4); Potassium 3.6 mmol/L (3.5-5.0); Total Bilirubin 0.6 mg/dL (0.2-1.0); Total Protein 4.8 g/dL (6.4-8.9)
--- NOTE | 2018-08-18 14:51 | PN ---
Subjective Date of Service: 08/18/18 Interval History: Pt was a CAT call circa 1348 for unresponsiveness. She did get her home clonazapam 1mg, lyrica 150mg along with 10mg oxycodone at 0800 (and 2 percoset at 530). She has been hypotensive in SBP 70/47 by 0930 and got fluid bolus 1000cc of LR. On arrival she is not responsive to sternal rub, loud voice or other noxious stimuli. Her pupils are 1mm b/l. Initial manual BPs in 80s systolically. Ordered for 0.4mg narcan and 1L fluid bolus wide open. 2nd IV established. About 4 minutes after narcan pt opened eyes and was verbally responsive. able to squeeze hands and wiggle toes on command. She was given 2nd narcan 0.4mg and became even more alert. Fingerstick 123. CBC, CMP, Lactic Acid, Troponin, INR, Mg ordered. EKG NSR. Initial attempt at ABG failed and before 2nd attempt she was fully responsive. transported to ICU for close monitoring as may need additional narcan. BP improved to 140s last check. Denies pain (except in bottom of feet), SOB, abdominal pain, STOVER. Objective Active Medications: Acetaminophen (Tylenol Tab*) 975 mg PO Q8H [facility] Last Admin: 08/18/18 07:58 Dose: Not Given Apixaban (Eliquis*) 2.5 mg PO BID [facility] Last Admin: 08/18/18 08:04 Dose: 2.5 mg Bisacodyl (Dulcolax Supp*) 10 mg [place] DAILY PRN PRN Reason: constipation Clonazepam (Klonopin Tab(*)) 1 mg PO QAM [facility] Last Admin: 08/18/18 08:04 Dose: 1 mg Clonazepam (Klonopin Tab(*)) 1 mg PO BEDTIME [facility] Cyclobenzaprine HCl (Flexeril Tab*) 10 mg PO TID PRN PRN Reason: SPASMS Diphenhydramine HCl (Benadryl Iv*) 12.5 mg IV Q6H PRN PRN Reason: PRURITIS Docusate Sodium (Colace Cap*) 100 mg PO BID [facility] Last Admin: 08/18/18 08:04 Dose: 100 mg Lactated Ringer's (Lactated Ringers 1000 Ml Bag*) 1,000 mls @ 100 mls/hr IV PER RATE [facility] Lactated Ringer's (Lactated Ringers 1000 Ml Bag*) 1,000 mls @ 0 mls/hr IV PER RATE [facility] Lactulose (Lactulose*) 30 ml PO Q6H PRN PRN Reason: constipation Levothyroxine Sodium (Synthroid Tab*) 88 mcg PO QAM@0600 [facility] Last Admin: 08/18/18 05:29 Dose: 88 mcg Magnesium Hydroxide (Milk Of Magnesia Liq*) 30 ml PO BID [facility] Last Admin: 08/18/18 08:03 Dose: 30 ml Magnesium Hydroxide (Milk Of Magnesia Liq*) 30 ml PO Q6H PRN PRN Reason: constipation Naloxone HCl (Narcan*) 0.4 mg IV PUSH Q2M PRN PRN Reason: other Ondansetron HCl (Zofran Inj*) 4 mg IV Q6H PRN PRN Reason: nausea Ondansetron HCl (Zofran Tab*) 4 mg PO Q6H PRN PRN Reason: NAUSEA Polyethylene Glycol/Electrolytes (Miralax*) 17 gm PO DAILY PRN PRN Reason: Constipation Prazosin HCl (Minipress Cap*) 5 mg PO BEDTIME [facility] Last Admin: 08/17/18 22:39 Dose: 5 mg Pregabalin (Lyrica Cap(*)) 150 mg PO QAM [facility] Last Admin: 08/18/18 08:04 Dose: 150 mg Pregabalin (Lyrica Cap(*)) 300 mg PO BEDTIME [facility] Last Admin: 08/17/18 22:56 Dose: 300 mg Risperidone (Risperdal*) 4 mg PO BEDTIME [facility] Last Admin: 08/17/18 22:39 Dose: 4 mg Tramadol HCl (Ultram*) 50 mg PO Q6H PRN PRN Reason: PAIN Vital Signs - 8 hr 08/18/18 08/18/18 08/18/18 07:45 08:00 08:04 Temperature 97.9 F Pulse Rate 82 Respiratory 10 18 Rate Blood Pressure 100/65 (mmHg) O2 Sat by Pulse 94 94 Oximetry 08/18/18 08/18/18 08/18/18 09:30 09:56 10:33 Temperature Pulse Rate 94 84 Respiratory 12 10 Rate Blood Pressure 70/47 77/51 (mmHg) O2 Sat by Pulse 95 Oximetry 08/18/18 08/18/18 11:14 14:28 Temperature 97.5 F 98.7 F Pulse Rate 86 102 Respiratory 14 22 Rate Blood Pressure 80/46 141/79 (mmHg) O2 Sat by Pulse 95 Oximetry Oxygen Devices in Use Now: None Appearance: NAD Eyes: No Scleral Icterus Ears/Nose/Mouth/Throat: NL Teeth, Lips, Gums Respiratory: Symmetrical Chest Expansion and Respiratory Effort, Clear to Auscultation Cardiovascular: NL Sounds; No Murmurs; No JVD, RRR Abdominal: NL Sounds; No Tenderness; No Distention, No Hepatosplenomegaly Extremities: No Edema, - - left leg immobilized. Skin: No Rash or Ulcers Neurological: Alert and Oriented x 3, - - counterintelligence agent 5/5, biceps 5/5, left hip flexion 5/5, leftplantar/dorsiflexion intact Nutrition: Taking PO's Result Diagrams: 08/18/18 14:04 08/18/18 14:04 Additional Lab and Data: Laboratory Results - last 24 hr 08/18/18 08/18/18 08/18/18 05:47 05:47 14:04 WBC 7.5 RBC 2.95 L Hgb 10.7 L 9.7 L Hct 31 L 28 L MCV 96 MCH 33 H MCHC 34 RDW 13 Plt Count 170 148 L MPV 9.0 9.5 Neut % (Auto) 79.3 Lymph % (Auto) 10.3 [place] % (Auto) 9.3 Eos % (Auto) 1.0 Baso % (Auto) 0.1 Absolute Neuts (auto) 6.0 Absolute Lymphs (auto) 0.8 L Absolute Monos (auto) 0.7 Absolute Eos (auto) 0.1 Absolute Basos (auto) 0 Absolute Nucleated RBC 0 Nucleated RBC % 0 Sodium 135 Potassium 4.2 Chloride 101 Carbon Dioxide 32 Anion Gap 2 BUN 17 Creatinine 0.82 Est GFR ( Amer) 87.9 Est GFR (Non-Af Amer) 72.6 BUN/Creatinine Ratio 20.7 H Glucose 105 H POC Glucose (mg/dL) Lactic Acid Calcium 8.3 L Total Bilirubin AST ALT Alkaline Phosphatase Troponin I Total Protein Albumin Globulin Albumin/Globulin Ratio 08/18/18 08/18/18 08/18/18 14:04 14:04 14:07 WBC RBC Hgb Hct MCV MCH MCHC RDW Plt Count MPV Neut % (Auto) Lymph % (Auto) [place] % (Auto) Eos % (Auto) Baso % (Auto) Absolute Neuts (auto) Absolute Lymphs (auto) Absolute Monos (auto) Absolute Eos (auto) Absolute Basos (auto) Absolute Nucleated RBC Nucleated RBC % Sodium 138 Potassium 3.6 Chloride 105 Carbon Dioxide 29 Anion Gap 4 BUN 22 Creatinine 1.27 H Est GFR ( Amer) 53.1 Est GFR (Non-Af Amer) 43.9 BUN/Creatinine Ratio 17.3 Glucose 111 H POC Glucose (mg/dL) 124 H Lactic Acid 1.6 Calcium 7.7 L Total Bilirubin 0.60 AST 187 H ALT 158 H Alkaline Phosphatase 62 Troponin I 0.00 Total Protein 4.8 L Albumin 3.1 L Globulin 1.7 L Albumin/Globulin Ratio 1.8 Assess/Plan/Problems-Billing Assessment: 52 yo female PMH fibromylagia, anxiety, depression, hypothyroidism, with elective left total knee 08/[address] Escobar. Course complicated by CAT call for unresponsiveness that resolved with 0.4mg narcan x2. #Toxic Metabolic Encephalopathy secondary to opioid, improved after naracan 0.4mg x2. continue prn - d/c all opioids for now - I have reduced her PM dose of clonazapam from 3mg qhs to 1mg qhs #Hypotension in setting of opioid + benzo sedation - s/p 2L fluid bolus - afebrile, continue cefazolin abx ppx. - she has history of what sounds like provoked PE during critical illness hospitalization. No signs of hypoxia or tachycardia here. Continue Eliquis #Transaminitis - likely secondary to hypotensoin - no abdominal pain, Bili wnl #DEEPAK - in setting of hypotension, s/p IVF bolus -mIVF -BMP daily. #left total knee - eliquis - PT #Hypothyroidism - continue synthroid #anxiety, depression - risperidal. - reduction in clonazapam - lyrica CODE: full dispo: ortho service, medicine consulting after CAT call. currently in ICU
[2018-08-18 14:58] LABS: Magnesium 2.7 mg/dL (1.9-2.7)
[2018-08-18] MEDS: traMADol TAB* 50 MG PO PRN (16:33)
[2018-08-18] MEDS: Lactated Ringers 1000 ML Bag* 1,000 ML IV SCH (18:57)
[2018-08-18] MEDS ORDERED: Ketorolac INJ* 15 MG/ML 1 ML VIAL IV PUSH ONE (20:10)
[2018-08-18] MEDS ORDERED: Ketorolac INJ* 15 MG/ML 1 ML VIAL ONE (20:16)
[2018-08-18] MEDS: Pregabalin CAP(*) 100 MG PO SCH (20:40)
[2018-08-18] MEDS ORDERED: clonazePAM TAB(*) 1 MG PO SCH (21:00)
[2018-08-18] MEDS: risperiDONE TAB* 2 MG PO SCH (21:51)
[2018-08-18] MEDS: Prazosin CAP* 5 MG PO SCH (21:51)
[2018-08-19] MEDS: Acetaminophen TAB* 325 MG PO SCH ×3 (01:20→17:38)
[2018-08-19] MEDS: traMADol TAB* 50 MG PO PRN ×4 (01:20→21:48)
[2018-08-19] MEDS: Lactated Ringers 1000 ML Bag* 1,000 ML IV SCH ×2 (01:23→06:42)
[2018-08-19 06:22] LABS: ABS Basophils 0 10^3/ul (0-0.2); ABS Eosinophils 0.2 10^3/ul (0-0.6); ABS Monocytes 0.5 10^3/ul (0-0.8); ABS Neutrophils 4.2 10^3/ul (1.5-7.7); ABS Nucleated RBC 0 10^3/ul; Eosinophil % 4.2 %; Hematocrit 26 % (35-47); Hemoglobin 8.6 g/dl (12.0-16.0); Lymphocyte % 16.2 %; Mean Corpuscular HGB Conc 34 g/dl (31-36); Mean Corpuscular Hemoglobin 32 pg (27-31); Mean Corpuscular Volume 96 fL (80-97); Nucleated Red Blood Cells % 0; Platelet Count 159 10^3/ul (150-450); Red Blood Count 2.65 10^6/ul (4.00-5.40); Red Cell Distribution Width 13 % (10.5-15); White Blood Count 5.9 10^3/ul (3.5-10.8)
[2018-08-19 06:30] LABS: INR 1.2 (0.77-1.02)
[2018-08-19 06:42] LABS: BUN/Creatinine Ratio 23.6 (8-20); Blood Urea Nitrogen 17 mg/dL (6-24); CO2 Carbon Dioxide 32 mmol/L (22-32); Calcium 7.6 mg/dL (8.6-10.3); Chloride 104 mmol/L (101-111); EGFR African American 102.1 (>60); EGFR Non-African American 84.4 (>60); Glucose 87 mg/dL (70-100); Sodium 135 mmol/L (135-145)
[2018-08-19] MEDS: Levothyroxine TAB* 88 MCG TAB PO SCH (06:42)
[2018-08-19] MEDS: clonazePAM TAB(*) 1 MG PO SCH (09:56)
[2018-08-19] MEDS: Docusate CAP* 100 MG PO SCH ×2 (09:56→20:27)
[2018-08-19] MEDS: Pregabalin CAP(*) 50 MG PO SCH (09:56)
[2018-08-19] MEDS: Magnesium Hydroxide LIQ* 30 ML UDC PO SCH ×2 (09:58→20:29)
[2018-08-19] MEDS: Apixaban* 2.5 MG TAB PO SCH ×2 (11:56→20:29)
--- NOTE | 2018-08-19 13:10 | PN ---
Progress Note - Progress Note Date of Service: 08/19/18 SOAP: Subjective: []pt seen at bedside. She was transferred back from the ICU this morning. She feels well without CP, SOB, dizziness, nausea or confusion. Left knee pain is present though well controlled. Objective: [] General: Well appearing, NAD, alert and oriented x 3, carrying on appropriate conversation LLE: Left knee dressing changed, incision CDI with cryo cuff in use, DF/PF intact, DP2+, sensation intact to light touch distally. Calves supple and nontender without erythema, edema or palpable cords Assessment: []pod 2 s/p LTK Plan: []WBAT PT/OT eliquis 2.5 mg po BID Monitor overnight, pain control with tylenol primarily, may use tramadol as needed but limit as much as possible and hold all narcotics for sedation Vital Signs Temp 98.7 F 08/18/18 14:28 Pulse 102 08/19/18 10:01 Resp 14 08/19/18 11:00 BP 125/85 08/19/18 10:01 Pulse Ox 95 08/19/18 10:01 Intake & Output 08/18/18 08/19/18 08/19/18 18:59 06:59 18:59 Intake Total 1958 2488 240 Output Total 0 1000 Balance 1958 1488 240 Weight 189 lb 9.561 oz Intake: IV Fluids 2037 ABX - CEFAZOLIN 55 LR 1983 IVPB 999 LR 999 Oral 960 450 240 Output: Urine 0 1000 Laboratory Last Values WBC 5.9 10^3/ul (3.5-10.8) 08/19/18 06:13 RBC 2.65 10^6/ul (4.00-5.40) L 08/19/18 06:13 Hgb 8.6 g/dl (12.0-16.0) L 08/19/18 06:13 Hct 26 % (35-47) L 08/19/18 06:13 MCV 96 fL (80-97) 08/19/18 06:13 MCH 32 pg (27-31) H 08/19/18 06:13 MCHC 34 g/dl (31-36) 08/19/18 06:13 RDW 13 % (10.5-15) 08/19/18 06:13 Plt Count 159 10^3/ul (150-450) 08/19/18 06:13 MPV 10.0 fL (7.4-10.4) 08/19/18 06:13 Neut % (Auto) 70.5 % 08/19/18 06:13 Lymph % (Auto) 16.2 % 08/19/18 06:13 [place] % (Auto) 8.9 % 08/19/18 06:13 Eos % (Auto) 4.2 % 08/19/18 06:13 Baso % (Auto) 0.2 % 08/19/18 06:13 Absolute Neuts (auto) 4.2 10^3/ul (1.5-7.7) 08/19/18 06:13 Absolute Lymphs (auto) 1.0 10^3/ul (1.0-4.8) 08/19/18 06:13 Absolute Monos (auto) 0.5 10^3/ul (0-0.8) 08/19/18 06:13 Absolute Eos (auto) 0.2 10^3/ul (0-0.6) 08/19/18 06:13 Absolute Basos (auto) 0 10^3/ul (0-0.2) 08/19/18 06:13 Absolute Nucleated RBC 0 10^3/ul 08/19/18 06:13 Nucleated RBC % 0 08/19/18 06:13 INR (Anticoag Therapy) 1.20 (0.77-1.02) H 08/19/18 06:13 Sodium 135 mmol/L (135-145) 08/19/18 06:13 Potassium TNP 08/19/18 06:13 Chloride 104 mmol/L (101-111) 08/19/18 06:13 Carbon Dioxide 32 mmol/L (22-32) 08/19/18 06:13 Anion Gap Not Reportable 08/19/18 06:13 BUN 17 mg/dL (6-24) 08/19/18 06:13 Creatinine 0.72 mg/dL (0.51-0.95) 08/19/18 06:13 Est GFR ( Amer) 102.1 (>60) 08/19/18 06:13 Est GFR (Non-Af Amer) 84.4 (>60) 08/19/18 06:13 BUN/Creatinine Ratio 23.6 (8-20) H 08/19/18 06:13 Glucose 87 mg/dL (70-100) 08/19/18 06:13 POC Glucose (mg/dL) 124 mg/dL (70-100) H 08/18/18 14:07 Lactic Acid 1.6 mmol/L (0.5-2.0) 08/18/18 14:04 Calcium 7.6 mg/dL (8.6-10.3) L 08/19/18 06:13 Magnesium 2.7 mg/dL (1.9-2.7) 08/18/18 14:04 Total Bilirubin 0.60 mg/dL (0.2-1.0) 08/18/18 14:04 AST 187 U/L (13-39) H 08/18/18 14:04 ALT 158 U/L (7-52) H 08/18/18 14:04 Alkaline Phosphatase 62 U/L (34-104) 08/18/18 14:04 Troponin I 0.00 ng/mL (<0.04) 08/18/18 14:04 Total Protein 4.8 g/dL (6.4-8.9) L 08/18/18 14:04 Albumin 3.1 g/dL (3.2-5.2) L 08/18/18 14:04 Globulin 1.7 g/dL (2-4) L 08/18/18 14:04 Albumin/Globulin Ratio 1.8 (1-3) 08/18/18 14:04 Blood Type A Positive 08/18/18 14:04 Antibody Screen Negative 08/18/18 14:04
--- NOTE | 2018-08-19 14:16 | PN ---
Hospitalist Progress Note Date of Service: 08/19/18 Medicine Consult Note S: Pt without further episodes of unresponsiveness. Walking on interview with PT and walker assist. Reports 8/10 pain on walking. Requesting to return to home clonazepam dose given issues when dose lowered in the past. Last opioid dose oxycodone PO and Percocet PO on 3/6 AM. O: MEDICATIONS Acetaminophen (Tylenol Tab*) 975 mg PO Q8H [facility] Last Admin: 08/19/18 09:56 Dose: 975 mg Apixaban (Eliquis*) 2.5 mg PO BID [facility] Last Admin: 08/19/18 11:56 Dose: 2.5 mg Bisacodyl (Dulcolax Supp*) 10 mg [place] DAILY PRN PRN Reason: constipation Clonazepam (Klonopin Tab(*)) 1 mg PO QAM [facility] Last Admin: 08/19/18 09:56 Dose: 1 mg Clonazepam (Klonopin Tab(*)) 3 mg PO BEDTIME [facility] Cyclobenzaprine HCl (Flexeril Tab*) 10 mg PO TID PRN PRN Reason: SPASMS Docusate Sodium (Colace Cap*) 100 mg PO BID [facility] Last Admin: 08/19/18 09:56 Dose: 100 mg Lactulose (Lactulose*) 30 ml PO Q6H PRN PRN Reason: constipation Levothyroxine Sodium (Synthroid Tab*) 88 mcg PO QAM@0600 [facility] Last Admin: 08/19/18 06:42 Dose: 88 mcg Magnesium Hydroxide (Milk Of Magnesia Liq*) 30 ml PO BID [facility] Last Admin: 08/19/18 09:58 Dose: 30 ml Magnesium Hydroxide (Milk Of Magnesia Liq*) 30 ml PO Q6H PRN PRN Reason: constipation Naloxone HCl (Narcan*) 0.4 mg IV PUSH Q2M PRN PRN Reason: other Ondansetron HCl (Zofran Inj*) 4 mg IV Q6H PRN PRN Reason: nausea Ondansetron HCl (Zofran Tab*) 4 mg PO Q6H PRN PRN Reason: NAUSEA Polyethylene Glycol/Electrolytes (Miralax*) 17 gm PO DAILY PRN PRN Reason: Constipation Prazosin HCl (Minipress Cap*) 5 mg PO BEDTIME [facility] Last Admin: 08/18/18 21:51 Dose: 5 mg Pregabalin (Lyrica Cap(*)) 150 mg PO QAM [facility] Last Admin: 08/19/18 09:56 Dose: 150 mg Pregabalin (Lyrica Cap(*)) 300 mg PO BEDTIME [facility] Last Admin: 08/18/18 20:40 Dose: 300 mg Risperidone (Risperdal*) 4 mg PO BEDTIME [facility] Last Admin: 08/18/18 21:51 Dose: 4 mg Tramadol HCl (Ultram*) 100 mg PO Q6H PRN PRN Reason: PAIN Vital Signs 08/19/18 08/19/18 08/19/18 10:00 10:01 11:00 Pulse Rate 102 Respiratory 11 21 14 Rate Blood Pressure 125/85 (mmHg) O2 Sat by Pulse 95 Oximetry Gen: Appears well, standing with walker, not in acute distress Extrem: L knee with bandage c/d/i Labs reviewed and significant for: resolved DEEPAK Hgb 8.6 Assessment: 52W with fibromylagia, anxiety, depression, hypothyroidism, with elective left total knee 08/[address] Escobar with post-op course complicated by CAT call on afternoon of 08/18 for unresponsiveness that resolved with 0.4mg narcan x2. Recommendations: #Toxic Metabolic Encephalopathy secondary to opioids, improved after naracan 0.4mg x2 on 08/18. No further episodes. - avoid opioids given adverse effect when co-administered with home benzos #left total knee replacement - Eliquis per ortho - PT - pain control with APAP prn and tramadol 100mg q6h prn - avoid opioids, can consider IV NSAID prn pain if not controlled with above # Anemia. Likely contribution from blood loss during surgery, and now decreased from hemodilution after IVF during CAT call. No e/o active bleeding. - cont to monitor H/H #Hypothyroidism - continue synthroid #anxiety, depression - risperidal. - resume home clonazapam dosing 1mg/3mg - lyrica FULL CODE Dispo: ortho service, pt to return to surgery floor Patient medically stable. Continue current regimen. Thank you for the consult.
[2018-08-19] MEDS: Pregabalin CAP(*) 100 MG PO SCH (20:27)
[2018-08-19] MEDS: risperiDONE TAB* 2 MG PO SCH (20:29)
[2018-08-19] MEDS: Prazosin CAP* 5 MG PO SCH (20:29)
[2018-08-19] MEDS ORDERED: clonazePAM TAB(*) 1 MG PO SCH (21:00)
[2018-08-20] MEDS: Acetaminophen TAB* 325 MG PO SCH ×2 (00:54→09:52)
[2018-08-20] MEDS: traMADol TAB* 50 MG PO PRN ×2 (04:15→09:55)
[2018-08-20] MEDS: Levothyroxine TAB* 88 MCG TAB PO SCH (05:29)
[2018-08-20 05:55] LABS: Hematocrit 30 % (35-47); Hemoglobin 10.1 g/dl (12.0-16.0); Mean Platelet Volume 9.7 fL (7.4-10.4); Platelet Count 151 10^3/ul (150-450)
[2018-08-20 06:12] LABS: BUN/Creatinine Ratio 17.4 (8-20); Calcium 8.3 mg/dL (8.6-10.3); EGFR African American 107.3 (>60); EGFR Non-African American 88.7 (>60); Potassium 4.6 mmol/L (3.5-5.0)
[2018-08-20] MEDS: Magnesium Hydroxide LIQ* 30 ML UDC PO SCH (07:52)
[2018-08-20] MEDS: Apixaban* 2.5 MG TAB PO SCH (09:52)
[2018-08-20] MEDS: Pregabalin CAP(*) 50 MG PO SCH (09:52)
[2018-08-20] MEDS: clonazePAM TAB(*) 1 MG PO SCH (09:52)
[2018-08-20] MEDS: Docusate CAP* 100 MG PO SCH (09:53)
--- NOTE | 2018-08-20 10:27 | PN ---
Progress Note - Progress Note Date of Service: 08/20/18 SOAP: Subjective: []Patient seen at bedside. Doing well. Pain controlled with Tramadol. Ready to go to [facility] today. Objective: [] Vital Signs Temp 98.4 F 08/20/18 07:28 Pulse 85 08/20/18 07:28 Resp 16 08/20/18 09:55 BP 110/58 08/20/18 07:30 Pulse Ox 96 08/20/18 07:28 Intake & Output 08/19/18 08/20/18 08/20/18 18:59 06:59 18:59 Intake Total 1360 1150 1100 Output Total 300 1300 1000 Balance 1060 -150 100 Intake: Oral 1360 1150 1100 Output: Urine 300 1300 1000 Other: Estimated Void Medium # Bowel Movements 2 Estimated Stool Amount Large # Voids 1 Laboratory Results - last 24 hr 08/20/18 08/20/18 05:36 05:36 Hgb 10.1 L Hct 30 L Plt Count 151 MPV 9.7 Sodium 136 Potassium 4.6 Chloride 102 Carbon Dioxide 33 H Anion Gap 1 L BUN 12 Creatinine 0.69 Est GFR ( Amer) 107.3 Est GFR (Non-Af Amer) 88.7 BUN/Creatinine Ratio 17.4 Glucose 109 H Calcium 8.3 L Left knee incision benign calf NT and soft +DF left ankle sensation intact Assessment: []s/p LTK POD#3 Plan: []Discharge to [facility] WBAT LLE Eliquis 2.5 mg BID 30 days Follow up 10-[address] Escobar
--- NOTE | 2018-08-20 11:21 | DS ---
AMENDED REPORT NOW INCLUDES DESIGNATED COSIGNER DISCHARGE SUMMARY: DATE OF ADMISSION: 08/17/18 DATE OF DISCHARGE: 08/20/18 ATTENDING PHYSICIAN: Dr. Ritu Escobar.* (DICTATED BY KYRIE REYNOLDS) ADMISSION DIAGNOSIS: Severe end-stage degenerative osteoarthritis of the left knee joint with valgus deformity. DISCHARGE DIAGNOSES: Severe end-stage degenerative osteoarthritis of the left knee joint with valgus deformity. SURGERY PERFORMED: Left total knee arthroplasty. HOSPITAL COURSE: The patient is a 52-year-old female with years of increasingly severe left knee pain and valgus deformity. Her plain films revealed [id number] degenerative arthritis. She failed conservative management with anti- inflammatories, pain medications, intraarticular cortisone injections, and physical therapy. Due to continued pain and decreased quality of life, she elected to proceed with left total knee arthroplasty. She was taken to the operating room under the care of Dr. Ritu Escobar on the date of 08/17/18. She tolerated the procedure well and left the operating room in stable condition. On postoperative day #1 on 08/18/18, there was a catcall for unresponsiveness. She did receive clonazepam, Lyrica, and 10 mg of oxycodone. She was hypotensive and did require 2 doses of Narcan. She was monitored closely in the ICU, was given fluid bolus, and narcotic pain medications were discontinued. Her mentation improved significantly over the next 2 days and she had no further episodes with this. She was able to tolerate tramadol without any somnolence or other side effects. She had no further postoperative complications. She does not have help at home and felt she would benefit from additional rehabilitation prior to returning to home independently. She was found to be an acceptable candidate for [facility] and a bed available on 08/20/18 for transfer. CONDITION ON DISCHARGE: Temperature 98.4, pulse 85, respiratory rate 18, O2 sats 96% on room air, blood pressure 142/78. Her left knee incision is healing without evidence of infection. Her calf is soft and nontender. She has active dorsiflexion of the left ankle. Her sensation and circulation are intact distally. PLAN: Discharged to [facility] on 08/20/18. She will continue to bear weight as tolerated on the left lower extremity. She will continue with Eliquis 2.5 mg p.o. b.i.d. for 30 days postoperatively. She may take tramadol for pain or Tylenol. She will follow up as scheduled in the office with Dr. Escobar in roughly 10 to 14 days. All questions were answered. KYRIE REYNOLDS [id number]/[facility] #: [id number] JANICE
[2018-08-20 12:50] VITALS: BP 131/74
== END 2018-08-20 13:00 | DRG 469 ==
LOC: AA 10:39 → SSU 19:49 → ICU 08-18 14:08 → SSU 08-19 12:31
PROVIDERS: ADMIT Orthopaedic Surgery Adult Reconstructive Orthopaedic Surgery; ATTEND Orthopaedic Surgery Adult Reconstructive Orthopaedic Surgery
PROC: 0SRD069 Replacement of Left Knee Joint with Oxidized Zirconium on Polyethylene Synthetic Substitute, Cemented, Open Approach (ICD-10-PCS; principal; 2018-08-17 13:30)
DX: M17.12 Unilateral primary osteoarthritis, left knee (principal); G92 Toxic encephalopathy; N17.9 Acute kidney failure, unspecified; F32.9 Major depressive disorder, single episode, unspecified; M21.062 Valgus deformity, not elsewhere classified, left knee; E03.9 Hypothyroidism, unspecified; M79.7 Fibromyalgia; M25.462 Effusion, left knee; F50.9 Eating disorder, unspecified; F41.1 Generalized anxiety disorder; F42.9 Obsessive-compulsive disorder, unspecified; F43.10 Post-traumatic stress disorder, unspecified; M25.762 Osteophyte, left knee; M85.80 Other specified disorders of bone density and structure, unspecified site; Z86.711 Personal history of pulmonary embolism; Z93.2 Ileostomy status; Z90.49 Acquired absence of other specified parts of digestive tract; Z82.49 Family history of ischemic heart disease and other diseases of the circulatory system; Z80.9 Family history of malignant neoplasm, unspecified; Z82.3 Family history of stroke; Z87.891 Personal history of nicotine dependence; T40.2X5A Adverse effect of other opioids, initial encounter; Y92.239 Unspecified place in hospital as the place of occurrence of the external cause; D64.9 Anemia, unspecified; R74.0 Nonspecific elevation of levels of transaminase and lactic acid dehydrogenase [LDH]; I95.2 Hypotension due to drugs
CPT/HCPCS: 36415; 80048; 80053; 83605; 83735; 84484; 85014; 85018; 85025; 85049; 85610; 86850; 86900; 86901; 88305; 88311; 93005; A9270-GY; C1776; J0690; J1100; J1885; J2250; J2310; J2704; J2795; J3010